=== PATIENT | male | born 1950 | race Caucasian/White ===

== ENCOUNTER → 2016-04-07 | Outpatient (CLI) | payer MEDICARE | LOC: SL 20:30 | PROVIDERS: ATTEND Family Medicine | DX: G47.33 Obstructive sleep apnea (adult) (pediatric) (principal); R06.83 Snoring; I10 Essential (primary) hypertension ==

== ENCOUNTER → 2017-01-23 | Outpatient (CLI) | payer MEDICARE | END | disposition home or self-care (01) | LOC: GMAB 14:19 | PROVIDERS: ATTEND Family Medicine | DX: Z12.5 Encounter for screening for malignant neoplasm of prostate (principal); I12.9 Hypertensive chronic kidney disease with stage 1 through stage 4 chronic kidney disease, or unspecified chronic kidney disease | CPT/HCPCS: 84443; G0103 ==

== ENCOUNTER → 2017-07-18 | Outpatient (CLI) | payer MEDICARE | LOC: LAB.O 11:15 | PROVIDERS: ATTEND Psychiatry & Neurology Neurology | DX: G40.219 Localization-related (focal) (partial) symptomatic epilepsy and epileptic syndromes with complex partial seizures, intractable, without status epilepticus (principal); G60.3 Idiopathic progressive neuropathy; G56.13 Other lesions of median nerve, bilateral upper limbs; M54.16 Radiculopathy, lumbar region; D64.9 Anemia, unspecified; R53.83 Other fatigue; R51 Headache ==

== ENCOUNTER 2017-07-21 22:07 | Emergency (ER) | payer MEDICARE ==
[2017-07-21] MEDS ORDERED: SODIUM CHLORIDE 0.9% 100ML 100 ML IVPB ONE (22:42)
[2017-07-21] MEDS ORDERED: diltiaZEM DRIP 125 MG/25 ML VIAL IVPB ONE (22:43)
--- NOTE | 2017-07-21 22:52 | ED.PDOC ---
History of Present Illness - General Chief Complaint: Neuro Symptoms/Deficits Stated Complaint: Nausea and Vomiting, slow to respond Time Seen by Provider: 07/21/17 22:31 Source: family Exam Limitations: clinical condition - History of Present Illness Initial Comments: Patient presents with AMS for 21 hours. The says that he is slow to respond to question and just shakes his head. He normally is conversational. The says that he has had two CVAs. The first of which he lost a "significant" amount of memory. The second he last sensation and strength in he right extremities. She reports he also has a history of seizures for which he takes Keppra. His seizures consist of his right leg shaking. They do not affect his cognition. She says that he has had this AMS two previous times, one month ago, and two months ago. Those times were in the car when they were traveling. This time, they haven't been traveling anywhere. He had one episode of N/V this morning and he has not eaten much today. No seizure activity today. No other complaints. Timing/Duration: other - 21 hours Severity: moderate Improving Factors: nothing Worsening Factors: cold therapy Associated Symptoms: denies symptoms Allergies/Adverse Reactions: Allergies Clonidine Allergy (Verified 11/08/15 23:38) Metformin Allergy (Verified 11/08/15 16:03) Vomitting Home Medications: Ambulatory Orders Aspirin [Aspirin EC] 81 mg PO BEDTIME 11/08/15 Atorvastatin Calcium [Lipitor] 20 mg PO BEDTIME 11/08/15 Carvedilol 6.25 mg PO BEDTIME 11/08/15 Citalopram Hydrobromide 40 mg PO BEDTIME 11/08/15 Clopidogrel Bisulfate 75 mg PO BEDTIME 11/08/15 Lamotrigine [Lamictal] 100 mg PO BEDTIME 11/08/15 Levetiracetam [Keppra] 1,000 mg PO BID 11/08/15 Lisinopril 5 mg PO BEDTIME 11/08/15 Melatonin 3 mg PO BEDTIME 11/08/15 Ropinirole Hydrochloride [Ropinirole ER] 2 mg PO BEDTIME 11/08/15 amLODIPine BESYLATE [Norvasc] 5 mg PO BEDTIME 11/08/15 Ondansetron HCl [Zofran] 4 mg PO Q8HRS #10 tab 01/30/16 Review of Systems - Review of Systems Constitutional: States: no symptoms reported EENTM: States: no symptoms reported Respiratory: States: no symptoms reported Cardiology: States: no symptoms reported Gastrointestinal/Abdominal: States: no symptoms reported Genitourinary: States: no symptoms reported Musculoskeletal: States: no symptoms reported Skin: States: no symptoms reported Neurological: States: see HPI Endocrine: States: no symptoms reported Hematologic/Lymphatic: States: no symptoms reported Past Medical History (General) - Patient Medical History Hx Seizures: Yes Hx Stroke: Yes Hx Dementia: No Hx Asthma: No Hx of COPD: No Hx Cardiac Disorders: Yes - PVD - stent placement Hx Congestive Heart Failure: No Hx Pacemaker: No Hx Hypertension: Yes Hx Thyroid Disease: No Hx Diabetes: Yes Hx Gastroesophageal Reflux: No Hx Renal Disease: Yes Hx Cancer: No Hx of HIV: No Hx Hepatitis C: No Hx MRSA: No Surgical History: other - Vaccination History Hx Tetanus, Diphtheria Vaccination: No Hx Influenza Vaccination: No Hx Pneumococcal Vaccination: No Immunizations Up to Date: No - Social History Hx Tobacco Use: No Hx Alcohol Use: No Hx Substance Use: No Hx Substance Use Treatment: No Hx Depression: No Hx Physical Abuse: No Hx Emotional Abuse: No - Female History Patient is a Female of Child Bearing Age (10 -59 yrs old): No Patient : No - Triage Comment ED Triage Comment: Pt POA states he has had nausea and vomiting and has been slow to respond since 0300 today. Family Medical History - Family History Father Family History: No Known Living Status: Unknown Physical Exam - Physical Exam General Appearance: Other - slow to respond, knows his name and location Eye Exam: bilateral normal Ears, Nose, Throat: hearing grossly normal, normal ENT inspection Neck: non-tender, full range of motion, supple Respiratory: chest non-tender, lungs clear, normal breath sounds, no respiratory distress Cardiovascular/Chest: normal peripheral pulses, regular rate, rhythm, no edema Gastrointestinal/Abdominal: normal bowel sounds, non tender, soft Extremity: normal range of motion, non-tender, no pedal edema 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 Patient has 4/5 strength in right upper and lower extremities and 5/5 strength in left upper and lower extremities. Unable to test gait due to patient weakness. Skin Exam: normal color Lymphatic: no adenopathy Progress - Progress Progress: 07/22/17 00:44 CT head showed 1.2 cm x 2.1 cm SAH over the Suprasellar cistern. Neurosurgery at [facility] was contacted and accepted patient to the ICU. Cardizem failed to lower the blood pressure to the target of 140 systolic so Nitroprusside was started. Target bp was reached. There was no platelets in house for transfusion due to the patient's aspirin and Plavix use. Patient had one episode of N/V and was given Zofran 4 mg IV x one. Laboratory Tests 07/21/17 07/21/17 07/21/17 22:35 22:35 23:00 WBC 10.8 RBC 4.27 L Hgb 14.3 Hct 41.9 L MCV 98.0 H MCH 33.4 H MCHC 34.2 RDW 12.3 Plt Count 310 MPV 7.4 Absolute Neuts (auto) 8.70 H Absolute Lymphs (auto) 1.40 Absolute Monos (auto) 0.60 Absolute Eos (auto) 0.00 Absolute Basos (auto) 0.10 Neutrophils % 80.4 H Lymphocytes % 13.3 L Monocytes % 5.4 Eosinophils % 0.2 L Basophils % 0.7 PT INR PTT (SP) Sodium 141 Potassium 4.7 Chloride 107 Carbon Dioxide 24 Anion Gap 14.7 BUN 35 H Creatinine 2.83 H BUN/Creatinine Ratio 12.4 POC Glucose 128 H Random Glucose 148 H Serum Osmolality 292.0 Calcium 8.9 Total Bilirubin 0.6 AST 21 ALT 27 Alkaline Phosphatase 98 Creatine Kinase 39 CK-MB (CK-2) 1.4 CK-MB (CK-2) % Not Reportable Troponin I 0.02 B-Natriuretic Peptide Serum Total Protein 7.1 Albumin 3.9 Globulin 3.2 Albumin/Globulin Ratio 1.2 TSH Thyroxine (T4) Salicylates Acetaminophen 07/21/17 07/21/17 07/21/17 23:00 23:00 23:00 WBC RBC Hgb Hct MCV MCH MCHC RDW Plt Count MPV Absolute Neuts (auto) Absolute Lymphs (auto) Absolute Monos (auto) Absolute Eos (auto) Absolute Basos (auto) Neutrophils % Lymphocytes % Monocytes % Eosinophils % Basophils % PT 12.4 INR 1.070 PTT (SP) 32.4 Sodium Potassium Chloride Carbon Dioxide Anion Gap BUN Creatinine BUN/Creatinine Ratio POC Glucose Random Glucose Serum Osmolality Calcium Total Bilirubin AST ALT Alkaline Phosphatase Creatine Kinase CK-MB (CK-2) CK-MB (CK-2) % Troponin I B-Natriuretic Peptide 704.0 H* Serum Total Protein Albumin Globulin Albumin/Globulin Ratio TSH 2.36 Thyroxine (T4) 6.23 Salicylates < 4.0 Acetaminophen < 10.0 L 07/22/17 00:47 07/22/17 01:18 Departure - Departure Clinical Impression: Subarachnoid hematoma Disposition: Transfer to Hospital Condition: Fair Departure Forms: ED Discharge - Pt. Copy, Patient Portal Self Enrollment Diet: other - NPO Activity: other - as per hospitalist Referrals: Dereje Alegre MD [Primary Care Provider] - 1-2 Weeks Home Medications: Ambulatory Orders Aspirin [Aspirin EC] 81 mg PO BEDTIME 11/08/15 Atorvastatin Calcium [Lipitor] 20 mg PO BEDTIME 11/08/15 Carvedilol 6.25 mg PO BEDTIME 11/08/15 Citalopram Hydrobromide 40 mg PO BEDTIME 11/08/15 Clopidogrel Bisulfate 75 mg PO BEDTIME 11/08/15 Lamotrigine [Lamictal] 100 mg PO BEDTIME 11/08/15 Levetiracetam [Keppra] 1,000 mg PO BID 11/08/15 Lisinopril 5 mg PO BEDTIME 11/08/15 Melatonin 3 mg PO BEDTIME 11/08/15 Ropinirole Hydrochloride [Ropinirole ER] 2 mg PO BEDTIME 11/08/15 amLODIPine BESYLATE [Norvasc] 5 mg PO BEDTIME 11/08/15 Ondansetron HCl [Zofran] 4 mg PO Q8HRS #10 tab 01/30/16
[2017-07-21] MEDS ORDERED: diltiaZEM DRIP 125 MG in SODIUM CHLORIDE 0.9% 100ML 100 ML IVPB SCH (23:00)
--- NOTE | 2017-07-21 23:18 | CT ---
EXAM DESCRIPTION: Head CLINICAL HISTORY: AMS COMPARISON: 04/02/2013 TECHNIQUE: Axial CT of the head obtained from the skull apex to the skull base without contrast. FINDINGS: Acute intracranial hemorrhage the rightward aspect of the suprasellar cistern. Location of hemorrhage is concerning for aneurysm rupture. No significant mass effect or midline shift. Encephalomalacia involving the right temporal lobe compatible with remote infarction. The ventricular system and sulcal spaces are mildly enlarged compatible with mild cerebral atrophy. Focal subcentimeter areas of encephalomalacia involving the left basal ganglia likely represent remote lacunar type infarctions. Scattered areas of hypodensity throughout the supratentorial white matter are nonspecific and may be related to chronic small vessel ischemic change. The visualized paranasal sinuses and the mastoids are clear. No skull fracture identified. Visualized orbits and globes are unremarkable. Atherosclerotic calcification of the intracranial internal carotid arteries. DLP:859.97 mGy-cm IMPRESSION: 1. Acute subarachnoid hemorrhage measuring 2.1 x 1.2 cm at the rightward aspect of the suprasellar cistern. This could be seen with aneurysm rupture. Urgent finding reported to Dr. Dunn at 07/21/2017 11:16 PM CDT This exam was performed according to our departmental dose-optimization program, which includes automated exposure control, adjustment of the mA and/or kV according to patient size and/or use of iterative reconstruction technique. Electronically signed by: Jerman English 07/21/2017 11:17 PM CDT
[2017-07-22] MEDS ORDERED: NITROPRUSSIDE SODIUM 25 MG/ML VIAL IVPB ONE (00:44)
[2017-07-22] MEDS ORDERED: SODIUM CHLORIDE 0.9% 250ML 250 ML ONE (00:45)
[2017-07-22] MEDS ORDERED: NITROPRUSSIDE SODIUM 50 MG in SODIUM CHLORIDE 0.9% 250ML 250 ML IVPB SCH (01:00)
[2017-07-22] MEDS ORDERED: ONDANSETRON INJ 4 MG/2 ML VIAL IV ONE (01:07)
[2017-07-22] MEDS ORDERED: ONDANSETRON INJ 4 MG/2 ML VIAL ONE (01:07)
[2017-07-22 04:06] VITALS: BP 148/60; O2SAT 99
[2017-07-22 04:08] VITALS: TEMP 99.2
== END 2017-07-22 02:15 | disposition short-term general hospital (02) ==
LOC: ER 22:07
DX: I60.9 Nontraumatic subarachnoid hemorrhage, unspecified (principal); R11.2 Nausea with vomiting, unspecified; G40.909 Epilepsy, unspecified, not intractable, without status epilepticus; I10 Essential (primary) hypertension; E11.9 Type 2 diabetes mellitus without complications; I69.911 Memory deficit following unspecified cerebrovascular disease; I69.951 Hemiplegia and hemiparesis following unspecified cerebrovascular disease affecting right dominant side; Z79.02 Long term (current) use of antithrombotics/antiplatelets; Z79.899 Other long term (current) drug therapy; Z79.82 Long term (current) use of aspirin
CPT/HCPCS: 36415; 70450; 80053; 80329; 82550; 82553; 82948; 83880; 84436; 84443; 84484; 85025; 85610; 85730; 93005; J2405; J7050

== ENCOUNTER 2017-08-01 23:33 | Emergency (ER) | payer MEDICARE ==
--- NOTE | 2017-08-01 23:57 | ED.PDOC ---
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 RIGHT SIDED RESIDUAL WEAKENSS TONIGHT FOUND CONFUSED FOUND SLUMPED IN THE TOILET HE COULD NOT GET UP WITHOUT ASSISTANCE SINCE HIS DISCHARGE FROM [facility] HE DID WELL FOR 2 DAYS AFTER THAT HE HAS BEEN VOMTING ON AND OFF AND HAS NOT TAKEN HIS MEDICATIONS RECENTLY ADMITTED AT [facility] FOR ATRAUMATIC SAH HE IS A DIABETIC HYPERTENSIVE CHRONIC KIDNEY INJURY SEIZURES TIA USED TO BE CHRONIC HEAVY SMOKER AND ALCOHLIC HE HAS HAD PAD RIGHT CAROTID DISEASE HIS NEUROLOGIST IS DR MCGILL AND DR BROWN IS HIS MELON PACKER - History of Present Illness Timing/Duration: 4-6 hours Severity: mild Improving Factors: nothing Worsening Factors: nothing Associated Symptoms: weakness Allergies/Adverse Reactions: Allergies Clonidine Allergy (Verified 11/08/15 23:38) Metformin Allergy (Verified 11/08/15 16:03) Vomitting Home Medications: Ambulatory Orders Aspirin [Aspirin EC] 81 mg PO BEDTIME 11/08/15 Atorvastatin Calcium [Lipitor] 20 mg PO BEDTIME 11/08/15 Carvedilol 6.25 mg PO BEDTIME 11/08/15 Citalopram Hydrobromide 40 mg PO BEDTIME 11/08/15 Clopidogrel Bisulfate 75 mg PO BEDTIME 11/08/15 Lamotrigine [Lamictal] 100 mg PO BEDTIME 11/08/15 Levetiracetam [Keppra] 1,000 mg PO BID 11/08/15 Lisinopril 5 mg PO BEDTIME 11/08/15 Melatonin 3 mg PO BEDTIME 11/08/15 Ropinirole Hydrochloride [Ropinirole ER] 2 mg PO BEDTIME 11/08/15 amLODIPine BESYLATE [Norvasc] 5 mg PO BEDTIME 11/08/15 Ondansetron HCl [Zofran] 4 mg PO Q8HRS #10 tab 01/30/16 Review of Systems - Review of Systems Constitutional: States: no symptoms reported EENTM: States: no symptoms reported Respiratory: States: no symptoms reported Cardiology: States: no symptoms reported Gastrointestinal/Abdominal: States: no symptoms reported Genitourinary: States: no symptoms reported Musculoskeletal: States: no symptoms reported Skin: States: no symptoms reported Neurological: States: see HPI Endocrine: States: no symptoms reported Past Medical History (General) - Patient Medical History Hx Seizures: Yes Hx Stroke: Yes Hx Dementia: No Hx Asthma: No Hx of COPD: No Hx Cardiac Disorders: Yes - PVD - stent placement Hx Congestive Heart Failure: No Hx Pacemaker: No Hx Hypertension: Yes Hx Thyroid Disease: No Hx Diabetes: Yes Hx Gastroesophageal Reflux: No Hx Renal Disease: Yes Hx Cancer: No Hx of HIV: No Hx Hepatitis C: No Hx MRSA: No - Vaccination History Hx Tetanus, Diphtheria Vaccination: No Hx Influenza Vaccination: No Hx Pneumococcal Vaccination: No - Social History Hx Tobacco Use: No Hx Alcohol Use: No Hx Substance Use: No Hx Substance Use Treatment: No Hx Depression: No Hx Physical Abuse: No Hx Emotional Abuse: No - Female History Patient : No Family Medical History - Family History Father Family History: No Known Living Status: Unknown Physical Exam - Physical Exam General Appearance: Alert, Other - CHRONICALLY ILL APPEARING MALE WHO IS FEBRILE HYPERTENSIVE NO TACHYCARDIA NO TACHYPNEA NO HYPOXIA Eye Exam: bilateral normal Ears, Nose, Throat: hearing grossly normal, normal ENT inspection, normal pharynx Neck: non-tender, full range of motion, supple Respiratory: chest non-tender, lungs clear, normal breath sounds, no respiratory distress Cardiovascular/Chest: normal peripheral pulses, regular rate, rhythm, no edema, no gallop Peripheral Pulses: radial,right: 2+, radial,left: 2+, femoral,right: 2+, femoral ,left: 2+, popliteal,right: 2+, popliteal,left: 2+ Gastrointestinal/Abdominal: normal bowel sounds, non tender, soft, no organomegaly Back Exam: normal inspection, no CVA tenderness, no vertebral tenderness Extremity: normal range of motion, non-tender, normal inspection, no pedal edema , no calf tenderness 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, no motor/sensory deficits, other - HE IS RATHER LETHARGIC HE RESPONDS TO VERBAL COMMANDS NO GROSS FOCAL LESION NOTED Progress - Results/Orders Results/Orders: Laboratory Tests 08/02/17 08/02/17 08/02/17 00:35 00:35 01:35 WBC 18.3 H RBC 3.78 L Hgb 12.6 L Hct 36.9 L MCV 97.8 H MCH 33.3 H MCHC 34.1 RDW 11.9 Plt Count 355 MPV 7.5 Absolute Neuts (auto) 16.70 H Absolute Lymphs (auto) 0.60 L Absolute Monos (auto) 1.00 H Absolute Eos (auto) 0.00 Absolute Basos (auto) 0.10 Neutrophils % 91.0 H Lymphocytes % 3.3 L Monocytes % 5.4 Eosinophils % 0.0 L Basophils % 0.3 Sodium 133 L Potassium 4.2 Chloride 104 Carbon Dioxide 20 L Anion Gap 13.2 BUN 36 H Creatinine 3.01 H BUN/Creatinine Ratio 12.0 Random Glucose 258 H Serum Osmolality 283.6 Lactic Acid 1.2 Calcium 7.6 L Total Bilirubin 0.5 AST 19 ALT 22 Alkaline Phosphatase 85 Serum Total Protein 6.4 Albumin 3.0 L Globulin 3.4 Albumin/Globulin Ratio 0.9 L Urine Color Urine Appearance Urine pH Ur Specific [place] Urine Protein Urine Glucose (UA) Urine Ketones Urine Blood Urine Nitrite Urine Bilirubin Urine Urobilinogen Ur Leukocyte Esterase Urine RBC Urine WBC Ur Epithelial Cells Urine Bacteria 08/02/17 01:35 WBC RBC Hgb Hct MCV MCH MCHC RDW Plt Count MPV Absolute Neuts (auto) Absolute Lymphs (auto) Absolute Monos (auto) Absolute Eos (auto) Absolute Basos (auto) Neutrophils % Lymphocytes % Monocytes % Eosinophils % Basophils % Sodium Potassium Chloride Carbon Dioxide Anion Gap BUN Creatinine BUN/Creatinine Ratio Random Glucose Serum Osmolality Lactic Acid Calcium Total Bilirubin AST ALT Alkaline Phosphatase Serum Total Protein Albumin Globulin Albumin/Globulin Ratio Urine Color Yellow Urine Appearance Clear Urine pH 6.5 Ur Specific [place] 1.025 Urine Protein >=300 H Urine Glucose (UA) 250 H Urine Ketones Negative Urine Blood Small H Urine Nitrite Negative Urine Bilirubin Negative Urine Urobilinogen 1.0 Ur Leukocyte Esterase Negative Urine RBC 1-3 Urine WBC 3-5 H Ur Epithelial Cells 0 Urine Bacteria Rare Departure - Departure Clinical Impression: Aspiration pneumonia, Altered mental status, Acute kidney injury Disposition: Discharge to Home or Self Care Referrals: Dereje Alegre MD [Primary Care Provider] - 1-2 Weeks Home Medications: Ambulatory Orders Aspirin [Aspirin EC] 81 mg PO BEDTIME 11/08/15 Atorvastatin Calcium [Lipitor] 20 mg PO BEDTIME 11/08/15 Carvedilol 6.25 mg PO BEDTIME 11/08/15 Citalopram Hydrobromide 40 mg PO BEDTIME 11/08/15 Clopidogrel Bisulfate 75 mg PO BEDTIME 11/08/15 Lamotrigine [Lamictal] 100 mg PO BEDTIME 11/08/15 Levetiracetam [Keppra] 1,000 mg PO BID 11/08/15 Lisinopril 5 mg PO BEDTIME 11/08/15 Melatonin 3 mg PO BEDTIME 11/08/15 Ropinirole Hydrochloride [Ropinirole ER] 2 mg PO BEDTIME 11/08/15 amLODIPine BESYLATE [Norvasc] 5 mg PO BEDTIME 11/08/15 Ondansetron HCl [Zofran] 4 mg PO Q8HRS #10 tab 01/30/16
--- NOTE | 2017-08-02 00:35 | CT ---
EXAM: NONCONTRAST BRAIN CT EXAMINATION. CLINICAL INDICATION: Stroke. COMPARISON: Compared to brain CT examination July 21, 2016. TECHNIQUE: Using low dose helical CT technique, thin section axial images were performed through the brain without the administration of intravenous or subarachnoid contrast material. FINDINGS: Unchanged sequela of large right MCA territory infarction. Unchanged remote lacunar infarctions in the left lentiform nucleus left caudate head, left internal capsule and left external capsule. Unchanged sequela of bibasilar temporal lobe trauma versus infarction. Resolution of right skull subarachnoid hemorrhage. No diffuse brain swelling or brain herniation. No hydrocephalus. No subdural or epidural hematomas. No large subacute brain infarction. No parenchymal brain hemorrhage or evidence of intracranial mass lesion. The brainstem and cerebellum are normal. Bones of the skull and skull base are normal. The middle ears and mastoid air cells are clear. The partially visualized paranasal sinuses are clear. Globes and orbits are grossly normal. Moderate bilateral atherosclerotic calcification in the cavernous internal carotid arteries. IMPRESSION: 1. Resolution of right skull base subarachnoid hemorrhage since the comparison brain CT of July 21, 2017. 2. Unchanged remote bilateral brain infarctions as described above. 3. No intracranial hemorrhage or evidence of new brain infarction since the July 21, [address] examination. Findings discussed with Dr. Land on 08/02/2017 at 0033 hours. This exam was performed according to our departmental dose-optimization program, which includes automated exposure control, adjustment of the mA and/or kV according to patient size and/or use of iterative reconstruction technique. CT Electronically signed by: Winston Light MD 08/02/2017 12:33 AM CDT
[2017-08-02] MEDS ORDERED: CEFEPIME 1 GM in SODIUM CHLORIDE 0.9% 50ML 50 ML IVPB ONE (01:57)
[2017-08-02] MEDS ORDERED: SODIUM CHLORIDE 0.9% 50ML 50 ML ONE (02:04)
[2017-08-02] MEDS ORDERED: CEFEPIME 2 GM VIAL IVPB ONE (02:04)
--- NOTE | 2017-08-02 02:40 | RAD ---
EXAM DESCRIPTION: Chest,1 View CLINICAL HISTORY: Pneumonia COMPARISON: 11/08/2015 FINDINGS: Single frontal view of the chest. The cardiomediastinal silhouette has normal size and contour. Mild elevation left hemidiaphragm. Minimal hazy left basilar opacity. Postoperative change in the cervical spine and neck. Leads overlie the chest. Upper abdominal soft tissues are unremarkable. IMPRESSION: 1. Minimal hazy left basilar opacities. This may be related to atelectasis and elevation left hemidiaphragm however developing pneumonic process could produce a similar appearance. Continued radiographic follow-up recommended. Electronically signed by: Jerman English 08/02/2017 2:38 AM CDT
[2017-08-02] MEDS ORDERED: hydrALAZINE HCl 20 MG/ML VIAL ONE (03:02)
[2017-08-02] MEDS ORDERED: hydrALAZINE HCl 20 MG/ML VIAL IV ONE (03:08)
[2017-08-02 07:33] VITALS: O2SAT 99
[2017-08-02 09:46] VITALS: BP 198/84; TEMP 98
== END 2017-08-02 09:10 | disposition short-term general hospital (02) ==
LOC: ER 23:33
DX: J69.0 Pneumonitis due to inhalation of food and vomit (principal); R41.82 Altered mental status, unspecified; N17.9 Acute kidney failure, unspecified; I10 Essential (primary) hypertension; E11.9 Type 2 diabetes mellitus without complications; I73.9 Peripheral vascular disease, unspecified; Z79.82 Long term (current) use of aspirin; Z79.84 Long term (current) use of oral hypoglycemic drugs
CPT/HCPCS: 36415; 70450; 71045; 80053; 80177; 81001; 83605; 85025; A4216; J0360; J0692

== ENCOUNTER → 2017-08-01 | Outpatient (CLI) | payer MEDICARE | LOC: GMAB 14:43 | PROVIDERS: ATTEND Family Medicine | DX: R56.9 Unspecified convulsions (principal) ==

== ENCOUNTER → 2017-08-17 | Outpatient (CLI) | payer MEDICARE | LOC: GMAB 16:48 | PROVIDERS: ATTEND Family Medicine | DX: N39.0 Urinary tract infection, site not specified (principal) ==

== ENCOUNTER → 2017-08-30 | Outpatient (CLI) | payer MEDICARE | LOC: GMAB 14:38 | PROVIDERS: ATTEND Family Medicine | DX: N39.0 Urinary tract infection, site not specified (principal); N18.4 Chronic kidney disease, stage 4 (severe) ==

== ENCOUNTER → 2017-09-07 | Outpatient (CLI) | payer MEDICARE | LOC: LAB.O 14:04 | PROVIDERS: ATTEND Psychiatry & Neurology Neurology | DX: G60.3 Idiopathic progressive neuropathy (principal); G40.219 Localization-related (focal) (partial) symptomatic epilepsy and epileptic syndromes with complex partial seizures, intractable, without status epilepticus; M54.16 Radiculopathy, lumbar region; I08.0 Rheumatic disorders of both mitral and aortic valves; Z79.899 Other long term (current) drug therapy; Z79.01 Long term (current) use of anticoagulants ==

== ENCOUNTER 2017-10-01 05:22 | Emergency (ER) | payer MEDICARE ==
[2017-10-01] MEDS ORDERED: SODIUM CHLORIDE 0.9% (FLUSH) 10 ML SYG IV PRN (05:58)
[2017-10-01] MEDS ORDERED: SODIUM CHLORIDE 0.9% 1000ML 1,000 ML IVS PRN (05:58)
[2017-10-01 05:59] VITALS: TEMP 96.3
--- NOTE | 2017-10-01 06:09 | ED.PDOC ---
History of Present Illness - General Chief Complaint: Respiratory Problem Stated Complaint: shortness of breath after vomiting. Time Seen by Provider: 10/01/17 06:06 Source: family - Exam Limitations: no limitations - History of Present Illness Initial Comments: Donn Aburto 66 y/o male brought by with nausea vomiting since early this am and with sob.On arrival had Spo2 61% RA was found to be pale , diaphoretic,and no verbal. Timing/Duration: this morning Severity: severe Episode Description: sob/N/V Possible Cause: no prior episodes, other - aspiration Improving Factors: nothing Worsening Factors: nothing Associated Symptoms: shortness of breath Respiratory Risk Factors: other - N/V Allergies/Adverse Reactions: Allergies Clonidine Allergy (Verified 11/08/15 23:38) Metformin Allergy (Verified 11/08/15 16:03) Vomitting Home Medications: Ambulatory Orders Aspirin [Aspirin EC] 81 mg PO BEDTIME 11/08/15 Atorvastatin Calcium [Lipitor] 20 mg PO BEDTIME 11/08/15 Carvedilol 6.25 mg PO BEDTIME 11/08/15 Citalopram Hydrobromide 40 mg PO BEDTIME 11/08/15 Clopidogrel Bisulfate 75 mg PO BEDTIME 11/08/15 Lamotrigine [Lamictal] 100 mg PO BEDTIME 11/08/15 Levetiracetam [Keppra] 1,000 mg PO BID 11/08/15 Lisinopril 5 mg PO BEDTIME 11/08/15 Melatonin 3 mg PO BEDTIME 11/08/15 Ropinirole Hydrochloride [Ropinirole ER] 2 mg PO BEDTIME 11/08/15 amLODIPine BESYLATE [Norvasc] 5 mg PO BEDTIME 11/08/15 Ondansetron HCl [Zofran] 4 mg PO Q8HRS #10 tab 01/30/16 Review of Systems - Review of Systems Constitutional: States: no symptoms reported EENTM: States: no symptoms reported Respiratory: States: see HPI Gastrointestinal/Abdominal: States: vomiting Genitourinary: States: no symptoms reported Musculoskeletal: States: no symptoms reported Neurological: States: other - old cva Past Medical History (General) - Patient Medical History Hx Seizures: Yes Hx Stroke: Yes Hx Dementia: No Hx Asthma: No Hx of COPD: No Hx Cardiac Disorders: Yes - PVD - stent placement Hx Congestive Heart Failure: No Hx Pacemaker: No Hx Hypertension: Yes Hx Thyroid Disease: No Hx Diabetes: Yes Hx Gastroesophageal Reflux: No Hx Renal Disease: Yes Hx Cancer: No Hx of HIV: No Hx Hepatitis C: No Hx MRSA: No Surgical History: other - hernia repain,aortoiliac stent;c-spine - Vaccination History Hx Tetanus, Diphtheria Vaccination: No Hx Influenza Vaccination: No Hx Pneumococcal Vaccination: No - Social History Hx Tobacco Use: Yes Hx Alcohol Use: Yes - quit Hx Substance Use: No Hx Substance Use Treatment: No Hx Depression: No Hx Physical Abuse: No Hx Emotional Abuse: No - Female History Patient : No Family Medical History - Family History Father Family History: No Known Living Status: Unknown Hx Family Congestive Heart Failure: Yes - dad/[place] Hx Family Diabetes: Yes - mom Physical Exam - Physical Exam General Appearance: Anxious, Obvious distress Eye Exam: bilateral normal ENT Exam: normal ENT inspection, pharynx normal Neck: supple, trachea midline Respiratory: respiratory distress, rales - both lungs Cardiovascular/Chest: regular rate, rhythm, no murmur Gastrointestinal/Abdominal: non tender, soft Neurologic: other - lethargic Skin Exam: pallor Progress - Progress Progress: 10/01/17 06:23 Vital Signs - 8 hr 10/01/17 05:48 Temperature 96.3 F L Pulse Rate [ 128 H left] Respiratory 28 H Rate Blood Pressure 154/77 [right] O2 Sat by Pulse 56 L Oximetry - Results/Orders Results/Orders: 10/01/17 05:58 IV Care:Saline Lock per Protoc QSHIFT Telemetry .ONCE Sodium Chloride 0.9% (Flush) [Saline Flush Syringe] 10 ml IV PRN PRN Sodium Chloride 0.9% 1000ML [Ns 1000 ml] 1,000 ml IVS .QD EKG Assessment ONCE Pulse Oximetry Assessment DAILY 10/01/17 05:59 LACTIC ACID Stat BLOOD CULTURE Stat Chest,1 View [RAD] Stat 10/01/17 06:00 EKG STAT 10/01/17 06:04 B-TYPE NATRIURETIC PEPTIDE/BNP Stat COMPLETE METABOLIC PROFILE Stat D-DIMER,QUANTITATIVE Stat PARTIAL THROMBOPLASTIN TIME Stat PROTHROMBIN TIME Stat CBC (AUTOMATED) W/AUTO DIFF Stat DIFFERENTIAL,MANUAL BY FLAGS Stat 10/01/17 06:13 CARDIAC ENZYME GROUP Stat 10/01/17 09:00 Pulse Ox Daily Laboratory Results - last 24 hr 10/01/17 06:04 WBC 25.4 H* RBC 4.35 L Hgb 14.6 Hct 44.3 MCV 101.7 H MCH 33.5 H MCHC 33.1 RDW 13.4 Plt Count 401 H MPV 8.2 Absolute Neuts (auto) 20.90 H Absolute Lymphs (auto) 3.20 Absolute Monos (auto) 1.00 H Absolute Eos (auto) 0.10 Absolute Basos (auto) 0.20 H Neutrophils % 82.5 H Lymphocytes % 12.7 L Monocytes % 3.9 Eosinophils % 0.2 L Basophils % 0.7 - EKG/XRAY/CT EKG: Sinus, Tachy, nonspecific ST T wave Chg Comments: HR 110 narrow q wave 111 Procedures - Intubation Time of Intubation: 06:10 - had 2 attempts ;nurse/ems intubated patient w/size 7 ETT Intubation Method: orotracheal Tube Size (cm): 7.0 Medications: Pancuronium, Versed Breath Sounds after Intubation: equal Intubation Complications: no complications Post Intubation Xray: Yes Departure - Departure Clinical Impression: Acute respiratory failure Qualifiers: Respiratory failure complication: hypoxia Qualified Code(s): J96.01 - Acute respiratory failure with hypoxia Aspiration pneumonia due to regurgitated food Qualifiers: Laterality: bilateral Lung location: unspecified part of lung Qualified Code(s) : J69.0 - Pneumonitis due to inhalation of food and vomit Time of Disposition: :28 Disposition: Transfer to Hospital Condition: Serious Departure Forms: Patient Portal Self Enrollment Referrals: KIRSTIN OCONNOR MD [Primary Care Provider] - 1-2 Weeks Home Medications: Ambulatory Orders Aspirin [Aspirin EC] 81 mg PO BEDTIME 11/08/15 Atorvastatin Calcium [Lipitor] 20 mg PO BEDTIME 11/08/15 Carvedilol 6.25 mg PO BEDTIME 11/08/15 Citalopram Hydrobromide 40 mg PO BEDTIME 11/08/15 Clopidogrel Bisulfate 75 mg PO BEDTIME 11/08/15 Lamotrigine [Lamictal] 100 mg PO BEDTIME 11/08/15 Levetiracetam [Keppra] 1,000 mg PO BID 11/08/15 Lisinopril 5 mg PO BEDTIME 11/08/15 Melatonin 3 mg PO BEDTIME 11/08/15 Ropinirole Hydrochloride [Ropinirole ER] 2 mg PO BEDTIME 11/08/15 amLODIPine BESYLATE [Norvasc] 5 mg PO BEDTIME 11/08/15 Ondansetron HCl [Zofran] 4 mg PO Q8HRS #10 tab 01/30/16 Transfer to Outside Facility - Transfer Information Accepting Provider:: D/W Dr. Beaulieu-Hospitalist Accepting Facility: [facility] Reason for Transfer: ICU
[2017-10-01] MEDS ORDERED: PIPERACILLIN/TAZOBACTAM 3.375 GM VIAL IVPB ONE (06:14)
[2017-10-01] MEDS ORDERED: PIPERACILLIN/TAZOBACTAM 3.375 GM in SODIUM CHLORIDE 0.9% 100ML 100 ML IVPB ONE (06:15)
[2017-10-01] MEDS ORDERED: SODIUM CHLORIDE 0.9% 100ML 100 ML IVPB ONE (06:15)
--- NOTE | 2017-10-01 06:49 | RAD ---
EXAM DESCRIPTION: Single view of the chest CLINICAL HISTORY: vomiting aspiration. COMPARISON: 08/02/2017 FINDINGS: Single frontal view of the chest. NG tube with tip in the stomach, the side port is not above the level of the gastroesophageal junction. Endotracheal tube with tip at the level of the clavicles. Cardiac mediastinal silhouette is unremarkable. Pulmonary vascular congestion with bilateral interstitial and alveolar opacities. No pneumothorax. Possible small left pleural effusion. No acute osseous abnormalities. Upper abdominal soft tissues are unremarkable. IMPRESSION: 1. Pulmonary vascular congestion with bilateral interstitial and alveolar opacities. These findings suggest pulmonary edema. 2. NG tube with side-port above the level of the gastroesophageal junction. Recommend advancing 5-10 cm. Endotracheal tube in appropriate position. Electronically signed by: Jerman English 10/01/2017 6:38 AM CDT
[2017-10-01] MEDS ORDERED: LABETALOL INJ 5 MG/ML VIAL ONE (07:02)
[2017-10-01] MEDS ORDERED: hydrALAZINE HCl 20 MG/ML VIAL ONE (07:06)
[2017-10-01 07:17] VITALS: BP 157/89; O2SAT 94
[2017-10-02] MEDS ORDERED: MIDAZOLAM INJ 5 MG/5 ML VIAL ONE (07:00)
[2017-10-02] MEDS ORDERED: VECURONIUM BROMIDE 10 MG VIAL IV ONE (07:00)
[2017-10-02] MEDS ORDERED: WATER FOR INJ 10 ML VIAL INJ ONE (07:00)
== END 2017-10-01 07:10 | disposition short-term general hospital (02) ==
LOC: ER 05:22
DX: J96.01 Acute respiratory failure with hypoxia (principal); J69.0 Pneumonitis due to inhalation of food and vomit; I10 Essential (primary) hypertension; E11.9 Type 2 diabetes mellitus without complications; R11.2 Nausea with vomiting, unspecified; N28.9 Disorder of kidney and ureter, unspecified; Z86.73 Personal history of transient ischemic attack (TIA), and cerebral infarction without residual deficits; Z79.84 Long term (current) use of oral hypoglycemic drugs; Z79.82 Long term (current) use of aspirin; Z79.02 Long term (current) use of antithrombotics/antiplatelets
CPT/HCPCS: 31500; 36415; 36600; 71045; 80053; 81001; 82550; 82553; 82803; 82805; 83605; 83880; 84484; 85025; 85379; 85610; 85730; 93005; 94002; 94770; A4216; J0360; J2250; J2543; J7030; J7050

== ENCOUNTER 2017-12-10 13:06 | Emergency (ER) | payer MEDICARE ==
[2017-12-10 13:56] VITALS: BP 167/84; TEMP 97.4; O2SAT 100
[2017-12-10] MEDS ORDERED: LIDOCAINE HCL 2% (MOUTH-THROAT) 15 ML UD ONE (14:33)
--- NOTE | 2017-12-10 15:17 | ED.PDOC ---
History of Present Illness - General Chief Complaint: Problem Stated Complaint: Swan catheter hurting Time Seen by Provider: 12/10/17 15:14 Source: patient, family Exam Limitations: clinical condition - History of Present Illness Initial Comments: the patient is a 67-year-old male presenting to the emergency room secondary to pain at his Swan catheter site. The patient does have some dementia. Pain has been present for the last day. Apparently the catheter got tugged on a couple of times but has been draining okay. The catheterization present for a little more than a month secondary to urinary retention. He has followed up follow-up appointment with his urologist in 2 weeks. No fevers. Timing/Duration: 24 hours Severity: mild Improving Factors: nothing Worsening Factors: nothing Associated Symptoms: denies symptoms Allergies/Adverse Reactions: Allergies Calcitriol Allergy (Verified 12/10/17 13:23) Clonidine Allergy (Verified 11/08/15 23:38) Donepezil Allergy (Verified 12/10/17 13:23) Hydralazine [From BiDil] Allergy (Verified 12/10/17 13:23) Isosorbide Nitrate [From BiDil] Allergy (Verified 12/10/17 13:23) Levofloxacin [From Levaquin] Allergy (Verified 12/10/17 13:29) Metformin Allergy (Verified 11/08/15 16:03) Vomitting Nitroglycerin Allergy (Verified 12/10/17 13:23) Valproic Acid [From Depakote] Allergy (Verified 12/10/17 13:29) Yellow Dye [From BiDil] Allergy (Verified 12/10/17 13:23) Home Medications: Ambulatory Orders Aspirin [Aspirin EC] 81 mg PO BEDTIME 11/08/15 Atorvastatin Calcium [Lipitor] 20 mg PO BEDTIME 11/08/15 Carvedilol 6.25 mg PO BID 11/08/15 Citalopram Hydrobromide 40 mg PO BEDTIME 11/08/15 Clopidogrel Bisulfate 75 mg PO BEDTIME 11/08/15 Lamotrigine [Lamictal] 100 mg PO BID 11/08/15 Levetiracetam [Keppra] 500 mg PO BID 11/08/15 Lisinopril 20 mg PO BEDTIME 11/08/15 Melatonin 3 mg PO BEDTIME 11/08/15 Ropinirole Hydrochloride [Ropinirole ER] 2 mg PO BID 11/08/15 Furosemide 20 mg PO DAILY 12/10/17 Potassium Chloride Microencaps [Klor-Con M20] 20 meq PO DAILY 12/10/17 Review of Systems - Review of Systems Review of Systems: 12/10/17 15:16 review of systems is moderately limited secondary to dementia. Constitutional: States: no symptoms reported EENTM: States: no symptoms reported Respiratory: States: no symptoms reported Cardiology: States: no symptoms reported Gastrointestinal/Abdominal: States: no symptoms reported Genitourinary: States: see HPI Musculoskeletal: States: no symptoms reported Skin: States: no symptoms reported Neurological: States: no symptoms reported All other Systems: No Change from Baseline Past Medical History (General) - Patient Medical History Hx Seizures: Yes Hx Stroke: Yes Hx Dementia: No Hx Asthma: No Hx of COPD: No Hx Cardiac Disorders: Yes - PVD - stent placement Hx Congestive Heart Failure: No Hx Pacemaker: No Hx Hypertension: Yes Hx Thyroid Disease: No Hx Diabetes: Yes Hx Gastroesophageal Reflux: No Hx Renal Disease: Yes Hx Cancer: No Hx of HIV: No Hx Hepatitis C: No Hx MRSA: No - Vaccination History Hx Tetanus, Diphtheria Vaccination: No Hx Influenza Vaccination: No Hx Pneumococcal Vaccination: No - Social History Hx Tobacco Use: Yes Hx Alcohol Use: Yes - quit Hx Substance Use: No Hx Substance Use Treatment: No Hx Depression: No Hx Physical Abuse: No Hx Emotional Abuse: No - Female History Patient : No Family Medical History - Family History Father Family History: No Known Living Status: Unknown Hx Family Congestive Heart Failure: Yes - dad/[place] Hx Family Diabetes: Yes - mom Physical Exam - Physical Exam General Appearance: Alert, Obvious distress - he is reporting that his catheter is hurting him Eye Exam: bilateral normal Ears, Nose, Throat: normal pharynx Neck: non-tender, supple Respiratory: no respiratory distress, no accessory muscle use Cardiovascular/Chest: normal peripheral pulses, no edema Peripheral Pulses: radial,right: 2+, radial,left: 2+ Gastrointestinal/Abdominal: non tender, soft Rectal Exam: other - Swan catheter is causing pain. 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 We did deflate the balloon and advanced the catheter however this did not relieve the pain so the catheter was taken out for more than an hour. The pain did improve but he was unable to void. Due to this another catheter was replaced which is not hurting him nearly as much. He needs to keep his follow-up with urology. ER warnings were given. Departure - Departure Clinical Impression: Urinary catheter change required Disposition: Discharge to Home or Self Care Condition: Fair Departure Forms: ED Discharge - Pt. Copy, Patient Portal Self Enrollment Diet: regular diet Activity: increase activity as tolerated Referrals: KIRSTIN OCONNOR MD [Primary Care Provider] - 1-2 Weeks Home Medications: Ambulatory Orders Aspirin [Aspirin EC] 81 mg PO BEDTIME 11/08/15 Atorvastatin Calcium [Lipitor] 20 mg PO BEDTIME 11/08/15 Carvedilol 6.25 mg PO BID 11/08/15 Citalopram Hydrobromide 40 mg PO BEDTIME 11/08/15 Clopidogrel Bisulfate 75 mg PO BEDTIME 11/08/15 Lamotrigine [Lamictal] 100 mg PO BID 11/08/15 Levetiracetam [Keppra] 500 mg PO BID 11/08/15 Lisinopril 20 mg PO BEDTIME 11/08/15 Melatonin 3 mg PO BEDTIME 11/08/15 Ropinirole Hydrochloride [Ropinirole ER] 2 mg PO BID 11/08/15 Furosemide 20 mg PO DAILY 12/10/17 Potassium Chloride Microencaps [Klor-Con M20] 20 meq PO DAILY 12/10/17 Additional Instructions: the patient is a 67-year-old male presenting to the emergency room secondary to pain from his Swan catheter. We did deflate the balloon and advanced the catheter however this did not relieve the pain so the catheter was taken out for more than an hour. The pain did improve but he was unable to void. Due to this another catheter was replaced which is not hurting him nearly as much. He needs to keep his follow-up with urology. ER warnings were given.
== END 2017-12-10 15:31 | disposition home or self-care (01) ==
LOC: ER 13:06
DX: Z46.6 Encounter for fitting and adjustment of urinary device (principal); T83.84XA Pain due to genitourinary prosthetic devices, implants and grafts, initial encounter; F03.90 Unspecified dementia, unspecified severity, without behavioral disturbance, psychotic disturbance, mood disturbance, and anxiety; E11.22 Type 2 diabetes mellitus with diabetic chronic kidney disease; I12.9 Hypertensive chronic kidney disease with stage 1 through stage 4 chronic kidney disease, or unspecified chronic kidney disease; N18.9 Chronic kidney disease, unspecified; I73.9 Peripheral vascular disease, unspecified; Y84.8 Other medical procedures as the cause of abnormal reaction of the patient, or of later complication, without mention of misadventure at the time of the procedure; Z98.890 Other specified postprocedural states; Z86.73 Personal history of transient ischemic attack (TIA), and cerebral infarction without residual deficits; Z79.82 Long term (current) use of aspirin; Z79.899 Other long term (current) drug therapy

== ENCOUNTER 2018-01-30 16:47 | Inpatient (IN) | payer MEDICARE ==
[2018-01-30] MEDS ORDERED: SODIUM CHLORIDE 0.9% (FLUSH) 10 ML SYG IV PRN ×2 (17:01→20:33)
--- NOTE | 2018-01-30 17:17 | RAD ---
EXAM DESCRIPTION: Chest,1 View CLINICAL HISTORY: 67 years Male AMS COMPARISON: 10/01/2017, 11/02/2017 FINDINGS: Cardiac enlargement with central pulmonary vascular congestion and bilateral pulmonary infiltrates predominantly in the central distribution. Findings suggest developing pulmonary edema although infectious process is not excluded. Small left effusion. Areas of consolidation in both lower lung carvalho. IMPRESSION: Bilateral predominantly central infiltrates with consolidation in the lower lung carvalho and small effusions. Findings may reflect pulmonary edema. Infectious process is not excluded Electronically signed by: Doretha Cardenas MD 01/30/2018 5:16 PM [employer]
--- NOTE | 2018-01-30 17:32 | CT ---
PROCEDURE: Head CLINICAL HISTORY: 67 years Male AMS, FREQUENT FALLS COMPARISON: 11/02/2017. TECHNIQUE: Contiguous axial CT images obtained through the brain without IV contrast. This exam was performed according to our department optimization program which includes automated exposure control, adjustment of the mA and/or kv according to patient size and/or use of iterative reconstruction technique. FINDINGS: The ventricles and sulci are prominent consistent with atrophic changes. Areas of encephalomalacia in the temporal lobes bilaterally and numerous areas of lacunar infarct in the basal ganglia and left thalamus. Microvascular ischemic changes. No midline shift or mass effect. No mass lesions. No acute hemorrhage. Atherosclerotic calcifications. No fluid or significant mucosal thickening in the visualized paranasal sinuses. No depressed calvarial fractures. IMPRESSION: No acute intracranial abnormality is identified. Generalized atrophy with microvascular ischemic changes. Electronically signed by: Doretha Cardenas MD 01/30/2018 5:31 PM FIRST [employer]ATER
--- NOTE | 2018-01-30 17:43 | ED.PDOC ---
History of Present Illness - General Chief Complaint: Neuro Symptoms/Deficits Stated Complaint: frequent falls, CONFUSION Time Seen by Provider: 01/30/18 17:01 Source: family Exam Limitations: clinical condition - History of Present Illness Initial Comments: PT SENT TO THE ED BY PCP AFTER BEING FOUND TO BE ACUTELY CONFUSED TODAY. PTS REPORTS FREQUENT FALLS OVER THE PAST WEEK WITH INCREASING WEAKNESS AND CONFUSION NOTICED OVER THE PAST FEW DAYS. PT IS CURRENTLY BEING TREATED FOR PNEUMONIA WITH AUGMENTIN AND PHENERGAN DM. Timing/Duration: getting worse Severity: moderate Improving Factors: nothing Worsening Factors: nothing Associated Symptoms: cough, weakness Allergies/Adverse Reactions: Allergies Calcitriol Allergy (Verified 12/10/17 13:23) Clonidine Allergy (Verified 11/08/15 23:38) Donepezil Allergy (Verified 12/10/17 13:23) Hydralazine [From BiDil] Allergy (Verified 12/10/17 13:23) Isosorbide Nitrate [From BiDil] Allergy (Verified 12/10/17 13:23) Levofloxacin [From Levaquin] Allergy (Verified 12/10/17 13:29) Metformin Allergy (Verified 11/08/15 16:03) Vomitting Nitroglycerin Allergy (Verified 12/10/17 13:23) Valproic Acid [From Depakote] Allergy (Verified 12/10/17 13:29) Yellow Dye [From BiDil] Allergy (Verified 12/10/17 13:23) Home Medications: Ambulatory Orders Aspirin [Aspirin EC] 81 mg PO BEDTIME 11/08/15 Atorvastatin Calcium [Lipitor] 20 mg PO BEDTIME 11/08/15 Carvedilol 6.25 mg PO BID 11/08/15 Citalopram Hydrobromide 40 mg PO BEDTIME 11/08/15 Clopidogrel Bisulfate 75 mg PO BEDTIME 11/08/15 Lamotrigine [Lamictal] 100 mg PO BID 11/08/15 Levetiracetam [Keppra] 500 mg PO BID 11/08/15 Lisinopril 20 mg PO BEDTIME 11/08/15 Melatonin 3 mg PO BEDTIME 11/08/15 Ropinirole Hydrochloride [Ropinirole ER] 2 mg PO BID 11/08/15 Furosemide 20 mg PO DAILY 12/10/17 Potassium Chloride Microencaps [Klor-Con M20] 20 meq PO DAILY 12/10/17 Review of Systems - Review of Systems Constitutional: States: weakness. Denies: chills, fever EENTM: Denies: nose congestion, throat pain Respiratory: States: cough. Denies: short of breath Cardiology: Denies: chest pain, palpitations, syncope Gastrointestinal/Abdominal: Denies: nausea, vomiting Genitourinary: Denies: dysuria, frequency Musculoskeletal: Denies: joint pain, joint swelling Neurological: States: weakness. Denies: headache Endocrine: States: no symptoms reported Unable to Obtain Due To: dementia Past Medical History (General) - Patient Medical History Hx Seizures: Yes Hx Stroke: Yes Hx Dementia: No Hx Asthma: No Hx of COPD: No Hx Cardiac Disorders: Yes - PVD - stent placement Hx Congestive Heart Failure: Yes Hx Pacemaker: No Hx Hypertension: Yes Hx Thyroid Disease: No Hx Diabetes: Yes Hx Gastroesophageal Reflux: No Hx Renal Disease: Yes Hx Cancer: No Hx of HIV: No Hx Hepatitis C: No Hx MRSA: No Hx Other - free text: DEMENTIA - Vaccination History Hx Tetanus, Diphtheria Vaccination: No Hx Influenza Vaccination: No Hx Pneumococcal Vaccination: No - Social History Hx Tobacco Use: Yes Hx Alcohol Use: Yes - quit Hx Substance Use: No Hx Substance Use Treatment: No Hx Depression: No Hx Physical Abuse: No Hx Emotional Abuse: No - Female History Patient : No Family Medical History - Family History Father Family History: No Known Living Status: Unknown Hx Family Congestive Heart Failure: Yes - dad/[place] Hx Family Diabetes: Yes - mom Physical Exam - Physical Exam General Appearance: Alert, Comfortable, No apparent distress, Well Developed, Well Groomed, Well Hydrated Eye Exam: bilateral normal Ears, Nose, Throat: hearing grossly normal Neck: full range of motion, supple Respiratory: lungs clear, normal breath sounds, no respiratory distress, no accessory muscle use Cardiovascular/Chest: regular rate, rhythm, systolic murmur Gastrointestinal/Abdominal: soft, tenderness - EPIGASTRIC Extremity: non-tender, pedal edema - 1+ ON LEFT Neurologic: no motor/sensory deficits, alert, disoriented x 3 Skin Exam: warm/dry, pallor Progress - Progress Progress: 01/30/18 18:36 PT RESTING COMFORTABLY ON RE-EVAL. LABS AND DIAGNOSTICS DISCUSSED WITH PT AND SPOUSE AT BEDSIDE. RECOMMENDED ADMISSION FOR IV FLUIDS AND IV ANTIBIOTICS FOR PERSISTENT PNEUMONIA. PT AND ARE AGREEABLE. - EKG/XRAY/CT EKG: Sinus - @78BPM, NL INTERVALS, NL AXIS, LVH, nonspecific ST T wave Chg - T WAVE INVERSIONS IN THE INFERIOR AND LATERAL LEADS, Changed from - PREVIOUS FROM OCTOBER 2017 Departure - Departure Clinical Impression: Acute confusional state, Bilateral pneumonia, Failure of outpatient treatment, Acute on chronic renal failure, Dehydration, Generalized weakness, Frequent falls Time of Disposition: 18:41 Disposition: Admit Patient Condition: Fair Departure Forms: ED Discharge - Pt. Copy, Patient Portal Self Enrollment Referrals: KIRSTIN OCONNOR MD [Primary Care Provider] - 1-2 Weeks Home Medications: Ambulatory Orders Aspirin [Aspirin EC] 81 mg PO BEDTIME 11/08/15 Atorvastatin Calcium [Lipitor] 20 mg PO BEDTIME 11/08/15 Carvedilol 6.25 mg PO BID 11/08/15 Citalopram Hydrobromide 40 mg PO BEDTIME 11/08/15 Clopidogrel Bisulfate 75 mg PO BEDTIME 11/08/15 Lamotrigine [Lamictal] 100 mg PO BID 11/08/15 Levetiracetam [Keppra] 500 mg PO BID 11/08/15 Lisinopril 20 mg PO BEDTIME 11/08/15 Melatonin 3 mg PO BEDTIME 11/08/15 Ropinirole Hydrochloride [Ropinirole ER] 2 mg PO BID 11/08/15 Furosemide 20 mg PO DAILY 12/10/17 Potassium Chloride Microencaps [Klor-Con M20] 20 meq PO DAILY 12/10/17 Decision To Admit - Decistion To Admit Decision to Admit Reason: Admit from ER Decision to Admit Date: 01/30/18 Decision to Admit Time: 18:41 - CASE DISCUSSED WITH IVÁN SHIN NP WHO AGREES TO ADMIT
[2018-01-30] MEDS ORDERED: KETOROLAC TROMETHAMINE INJ 30 MG/ML VIAL ONE (19:00)
--- NOTE | 2018-01-30 19:53 | HP ---
SUPERVISING PHYSICIAN: Rishi Perla MD CHIEF COMPLAINT: Acute mental status changes. HISTORY OF PRESENT ILLNESS: This is a 67 year-old male patient who is having increasing confusion over the last week or so. He has also had fallen almost every day this past week. He sees Dr. Piyush Acevedo and sent him to the Emergency Room today. He has also been treated for pneumonia but his was worried about that because he has been unable to take his medication due to the increased confusion. He was on Augmentin and he has continually gotten weaker and weaker and today he would not communicate with anyone and again, he has had multiple falls. In the Emergency Room his chest x- ray showed bilateral predominantly central infiltrates and consolidation in the lower lung carvalho and small effusion. Findings may reflect pulmonary edema and infectious process is not excluded. His labs were drawn and his urinalysis was basically within normal limits with the exception of 100 urine protein and a trace of lysed blood. His WBCs were normal at 7.6 and hemoglobin of 10.2 and hematocrit of 31.5. His sodium was 137, potassium 4.6, chloride 1108, carbon dioxide 23, BUN 61 and creatinine 3.81. His baseline creatinine is about 6.5. Calcium low at 7.4, serum total protein 6, albumin 3.8. In the Emergency Room he was given some Toradol and a 250 mL bag of sodium chloride. His vital signs in the Emergency Room showed a temperature of 96.5 with a heart rate of 81, blood pressure 152/88, respiratory rate 18 and 02 saturations 100% on room air. I was called for hospital admission. PAST MEDICAL HISTORY: 1. CVAs. He had four in 2010, two in 2014, two in 2018. 2. Diabetes mellitus type 2 on diet thy; only. 3. Hypertension. 4. Hyperlipidemia. 5. PVD. 6. Seizure disorder. 7. Cerebrovascular disease. 8. Atherosclerotic cerebrovascular disease. 9. Restless leg syndrome. PAST SURGICAL HISTORY: 1. Bilateral arterial iliac stinting. 2. Right carotid endarterectomy. 3. Hernia repair. 4. Cervical disk surgery. CURRENT MEDICATIONS: Per the EMR and awaiting verification. ALLERGIES: Calcitrol, Clonidine, Donepezil, Hydralazine, Isosorbide, Levofloxacin, Metformin, Nitroglycerin, Depakote and yellow dye. FAMILY HISTORY: Positive for coronary artery disease, diabetes, hyperlipidemia , hypertension. SOCIAL HISTORY: He is , he is disabled. He quit smoking in 2011. There is no history of alcohol or illicit drug use. REVIEW OF SYSTEMS: GENERAL: Denies fever, fatigue or weight loss. HEENT: Negative for vision changes, sore throat or ear pain. RESPIRATORY: Positive for coughing and shortness of breath. Negative for wheezing. CARDIAC: Negative for chest pain, palpitations, tachycardia. GI: Negative for nausea, vomiting, diarrhea and constipation. GENITOURINARY: Negative for dysuria, polyuria, hematuria. MUSCULOSKELETAL: Negative for back pain, arthralgias, myalgias. NEUROLOGICAL: Positive for weakness and seizures. Negative for headaches. PHYSICAL EXAMINATION: VITAL SIGNS: He is afebrile. Heart rate 75, blood pressure 179/92, respiratory rate 18, 02 saturation 100% on room air. GENERAL: This is a 67 year-old thin male patient who is lying in his hospital bed. He is in no acute distress. HEENT: Normocephalic. He does have a laceration and some scrapes on the right side of his head. His oropharynx is clear. NECK: Supple without mass. There is no discernible jugular venous distention. CHEST: He has a few scattered rhonchi throughout and somewhat diminished towards the bases. There is no wheezing noted. There is equal rise and fall of the chest with inspiration and expiration. CARDIOVASCULAR: Thallium treadmill test. ABDOMEN: Soft, nondisplaced, non-tender. Bowel sounds are positive. EXTREMITIES: No cyanosis, clubbing, or edema. NEUROLOGIC: Cranial nerves II through XII appear to be intact. He is awake and alert. He answers simple questions appropriately. He is oriented to person and place. LABS AND FILMS: As per the history of present illness. ASSESSMENT: 1. Bilateral pneumonia most likely community acquired. He has been treated with Augmentin over the last few weeks but the patient has not been taking his medications. 2. Altered mental status most likely secondary to #1, although his cerebrovascular disease cannot be a component of his altered mental status as it seems he has a significant history of mental status changes. 3. Acute on chronic renal failure. His baseline creatinine is 2.5, today it is 3.8. 4. History of frequent falls that have increased exponentially in the last week. 5. History of multiple CVAs. 6. Seizure disorder on Keppra and Lamictal. 7. Hypertension. 8. Hyperlipidemia. PLAN: We will admit the patient to the hospital. I have initiated the pneumonia guidelines including aggressive pulmonary hygiene and breathing treatments. He will be on Rocephin and azithromycin. Blood culture, will attempt to ge a sputum culture but I put him on Rocephin azithromycin. Will also do neuro checks and I have consulted physical therapy. I have also ordered a Lamictal level as well as a Keppra level with the AM lab tomorrow. He will get some fluids overnight and will recheck his renal function. His home medications have been restarted. We will continue to monitor him closely and follow as needed. Dr. Perla is the collaborating physician and available for consultation. #[id number] [facility]
[2018-01-30] MEDS ORDERED: LEVALBUTEROL NEBS 1.25 MG/3 ML VIAL INH PRN (20:43)
[2018-01-30] MEDS ORDERED: CITALOPRAM HBR 20 MG TAB ONE (20:54)
[2018-01-30] MEDS ORDERED: CARVEDILOL 3.125 MG TAB ONE (20:55)
[2018-01-30] MEDS ORDERED: LISINOPRIL 10 MG TAB ONE (20:55)
[2018-01-30] MEDS ORDERED: levETIRAcetam 250 MG TAB ONE (20:55)
[2018-01-30] MEDS ORDERED: POTASSIUM CHLORIDE 20 MEQ TAB ONE (20:56)
[2018-01-30] MEDS ORDERED: FUROSEMIDE 40 MG TAB ONE (20:56)
[2018-01-30] MEDS ORDERED: SODIUM CHLORIDE 0.9% 250ML 250 ML ONE (20:59)
[2018-01-30] MEDS ORDERED: NON-FORMULARY MEDICATION 1 EA MIS (Citalopram Hydrobromide [Citalopram Hydrobromide] 40 MG PO SCH (21:00)
[2018-01-30] MEDS ORDERED: IV SET AND CAP CHANGE INJ INJ SCH (21:00)
[2018-01-30] MEDS ORDERED: ROPINIROLE HYDROCHLORIDE 1 MG PO SCH (21:00)
[2018-01-30] MEDS ORDERED: LISINOPRIL 5 MG TAB PO SCH (21:00)
[2018-01-30] MEDS ORDERED: NON-FORMULARY MEDICATION 1 EA MIS (Carvedilol [Carvedilol] 6.25 MG) PO SCH (21:00)
[2018-01-30] MEDS ORDERED: POTASSIUM CHLORIDE 20 MEQ TAB PO SCH (21:00)
[2018-01-30] MEDS ORDERED: SODIUM CHL 0.9% 50ML MIN-BAG+ 50 ML IVPB ONE (21:00)
[2018-01-30] MEDS ORDERED: AZITHROMYCIN IV 500 MG VIAL IVPB ONE (21:00)
[2018-01-30] MEDS ORDERED: cefTRIAXone SODIUM 1 GM VIAL ONE (21:01)
[2018-01-30] MEDS: ASPIRIN (ENTERIC COATED) 81 MG TAB PO SCH (21:03)
[2018-01-30] MEDS ORDERED: CARVEDILOL 12.5 MG TAB ONE (21:04)
[2018-01-30] MEDS: NON-FORMULARY MEDICATION 1 EA MIS (Furosemide [Furosemide] 20 MG) PO SCH (21:06)
[2018-01-30] MEDS: CLOPIDOGREL 75 MG TAB PO SCH (21:07)
[2018-01-30] MEDS: lamoTRIgine 100 MG TAB PO SCH (21:07)
[2018-01-30] MEDS: ATORVASTATIN 20 MG TAB PO SCH (21:08)
[2018-01-30] MEDS: NON-FORMULARY MEDICATION 1 EA MIS (Levetiracetam [Keppra] 500 MG) PO SCH (21:08)
[2018-01-30] MEDS: cefTRIAXone SODIUM 1 GM in SODIUM CHL 0.9% 50ML MIN-BAG+ 50 ML IVPB SCH (21:08)
[2018-01-30] MEDS: POTASSIUM CHLORIDE ELIXIR 20 MEQ/15 ML UD PO SCH (21:26)
[2018-01-30] MEDS: LEVALBUTEROL NEBS 1.25 MG/3 ML VIAL INH SCH (21:37)
[2018-01-30] MEDS: SODIUM CHLORIDE 0.45% 1000ML 1,000 ML IVS PRN (21:59)
[2018-01-30] MEDS: AZITHROMYCIN IV 500 MG in SODIUM CHLORIDE 0.9% 250ML 250 ML IVPB SCH (22:09)
[2018-01-31] MEDS ORDERED: HALOPERIDOL LACTATE INJ 5 MG/ML VIAL IM ONE (02:16)
[2018-01-31] MEDS ORDERED: diphenhydrAMINE HCL 50 MG/ML VIAL IV ONE (02:17)
[2018-01-31] MEDS: guaiFENesin ER TAB 600 MG TAB PO SCH ×3 (02:31→20:36)
[2018-01-31] MEDS: PANTOPRAZOLE SODIUM IV 40 MG VIAL IV SCH (06:32)
--- NOTE | 2018-01-31 07:03 | RAD ---
EXAM DESCRIPTION: Chest,1 View CLINICAL HISTORY:67 years Male, Pneumonia Comparison: January 30, 2018 FINDINGS: Unchanged enlarged cardiac silhouette with mild vascular congestion and bilateral pulmonary infiltrates favoring pulmonary edema. Infectious process not excluded. Small left pleural effusion. No pneumothorax. Electronically signed by: Jose Herrera MD 01/31/2018 7:02 AM EXPERIENCE SPECIALIST
[2018-01-31] MEDS: SODIUM CHLORIDE 0.45% 1000ML 1,000 ML IVS PRN ×2 (07:50→15:39)
[2018-01-31] MEDS: LEVALBUTEROL NEBS 1.25 MG/3 ML VIAL INH SCH ×4 (08:18→19:30)
[2018-01-31] MEDS ORDERED: levETIRAcetam 250 MG TAB ONE (08:47)
[2018-01-31] MEDS ORDERED: FUROSEMIDE 40 MG TAB ONE (08:47)
[2018-01-31] MEDS: NON-FORMULARY MEDICATION 1 EA MIS (Furosemide [Furosemide] 20 MG) PO SCH (08:48)
[2018-01-31] MEDS: lamoTRIgine 100 MG TAB PO SCH ×2 (08:49→20:34)
[2018-01-31] MEDS: CARVEDILOL 3.125 MG TAB PO SCH ×2 (08:49→20:33)
[2018-01-31] MEDS: POTASSIUM CHLORIDE ELIXIR 20 MEQ/15 ML UD PO SCH (08:50)
[2018-01-31] MEDS: NON-FORMULARY MEDICATION 1 EA MIS (Levetiracetam [Keppra] 500 MG) PO SCH (08:51)
[2018-01-31] MEDS: FUROSEMIDE 40 MG TAB PO SCH ×2 (09:29→20:34)
[2018-01-31] MEDS: levETIRAcetam 250 MG TAB PO SCH ×2 (09:29→20:33)
[2018-01-31] MEDS ORDERED: metroNIDAZOLE IV PREMIX 500MG 100 ML IVPB ONE ×2 (09:33→16:53)
[2018-01-31] MEDS: metroNIDAZOLE IV PREMIX 500MG 500 MG in PREMIX BAG 1 BAG IVPB SCH ×2 (09:35→16:54)
[2018-01-31] MEDS ORDERED: AZITHROMYCIN IV 500 MG VIAL IVPB ONE ×2 (11:52→21:54)
[2018-01-31] MEDS ORDERED: SODIUM CHLORIDE 0.9% 250ML 250 ML ONE ×2 (11:52→21:53)
[2018-01-31] MEDS ORDERED: HALOPERIDOL TAB 1 MG TAB PO ONE (16:23)
[2018-01-31] MEDS ORDERED: POTASSIUM CHLORIDE ELIXIR 20 MEQ/15 ML UD PO SCH (17:00)
[2018-01-31] MEDS ORDERED: SOD POLYSTYRENE SULFONATE 15 GM/60 ML BTTL PO ONE (18:21)
[2018-01-31] MEDS ORDERED: SODIUM CHL 0.9% 50ML MIN-BAG+ 50 ML IVPB ONE (19:45)
[2018-01-31] MEDS ORDERED: cefTRIAXone SODIUM 1 GM VIAL ONE (19:46)
[2018-01-31] MEDS ORDERED: BENZOCAINE-MENTH LOZ (CEPACOL) 1 EA LOZ MT PRN (19:50)
[2018-01-31] MEDS: ASPIRIN (ENTERIC COATED) 81 MG TAB PO SCH (20:31)
[2018-01-31] MEDS: CITALOPRAM HBR 20 MG TAB PO SCH (20:33)
[2018-01-31] MEDS: ATORVASTATIN 20 MG TAB PO SCH (20:35)
[2018-01-31] MEDS: MELATONIN 3 MG TAB PO SCH (20:36)
[2018-01-31] MEDS: CLOPIDOGREL 75 MG TAB PO SCH (20:36)
[2018-01-31] MEDS: cefTRIAXone SODIUM 1 GM in SODIUM CHL 0.9% 50ML MIN-BAG+ 50 ML IVPB SCH (20:37)
[2018-01-31] MEDS: AZITHROMYCIN IV 500 MG in SODIUM CHLORIDE 0.9% 250ML 250 ML IVPB SCH (21:59)
[2018-01-31] MEDS ORDERED: HALOPERIDOL TAB 5MG ONE (22:31)
[2018-02-01] MEDS ORDERED: metroNIDAZOLE IV PREMIX 500MG 100 ML IVPB ONE ×4 (00:46→20:04)
[2018-02-01] MEDS: metroNIDAZOLE IV PREMIX 500MG 500 MG in PREMIX BAG 1 BAG IVPB SCH ×3 (00:48→16:40)
[2018-02-01] MEDS: SODIUM CHLORIDE 0.45% 1000ML 1,000 ML IVS PRN ×2 (03:40→16:04)
[2018-02-01] MEDS: PANTOPRAZOLE SODIUM IV 40 MG VIAL IV SCH (06:04)
--- NOTE | 2018-02-01 06:52 | RAD ---
EXAM DESCRIPTION: Chest,1 View CLINICAL HISTORY:67 years Male, pneumonia Comparison: January 31, 2018 FINDINGS: Unchanged enlarged cardiac silhouette with bilateral perihilar infiltrates/edema/pneumonia and possible small left pleural effusion. Electronically signed by: Jose Herrera MD 02/01/2018 6:51 AM [facility]
[2018-02-01] MEDS ORDERED: SOD POLYSTYRENE SULFONATE 15 GM/60 ML BTTL PO ONE (07:31)
[2018-02-01] MEDS ORDERED: SOD POLYSTYRENE SULFONATE 15 GM/60 ML BTTL ONE (07:56)
[2018-02-01] MEDS ORDERED: ENOXAPARIN SODIUM 30 MG/0.3 ML SYG SUBCU ONE ×2 (07:56→15:34)
[2018-02-01] MEDS: FUROSEMIDE 40 MG TAB PO SCH ×2 (07:58→20:25)
[2018-02-01] MEDS: CARVEDILOL 3.125 MG TAB PO SCH ×2 (07:59→20:24)
[2018-02-01] MEDS: lamoTRIgine 100 MG TAB PO SCH ×2 (07:59→20:27)
[2018-02-01] MEDS: levETIRAcetam 250 MG TAB PO SCH ×2 (08:00→20:26)
[2018-02-01] MEDS: guaiFENesin ER TAB 600 MG TAB PO SCH ×2 (08:00→20:26)
[2018-02-01] MEDS: LEVALBUTEROL NEBS 1.25 MG/3 ML VIAL INH SCH ×4 (08:20→20:05)
--- NOTE | 2018-02-01 08:58 | PN ---
SUPERVISING PHYSICIAN: Rishi Perla MD DATE: 01-31-18 SUBJECTIVE: The patient became restless and required some Haldol but he is doing fine with sitter this morning. He does not seem as confused this morning as he was last night. He has been afebrile. He does note that he is not feeling very well. He has had no nausea or vomiting. OBJECTIVE: VITAL SIGNS: Temperature 98.6, pulse 83, blood pressure 130/81, respirations 17 to 18, saturation 96% on room air. I&Os show to be well-balanced, he is incontinent and has not been measured of his output. Weight 59.9 kg. GENERAL: The patient is very unkept but he does look frail and ill and somewhat dehydrated looking but he is alert but slightly confused. CHEST: Lung sounds continue with some rhonchi throughout but certainly diminished towards both bases. There is no notable wheezing this morning. HEART: Regular rate and rhythm. ABDOMEN: Soft, non-tender, positive bowel sounds. EXTREMITIES: Without cyanosis, clubbing, or edema. NEUROLOGICAL: Facial features remain symmetrical. Extraocular movements are within normal limits. There is no notable nystagmus. Cranial nerves II through XII are grossly intact as assessed. He will respond to simple questions and remains oriented to person and place but not year. LABORATORY: White count this morning 8,900, hemoglobin 9.2 with hematocrit 20.3 with RBC indices showing a macrocytic hypochromic presentation. Platelet count 271,000, differential shows to be without a left shift. Coagulation studies show PT of 11.7, PTT of 27.6. Chemistries show a rising potassium at 5.1 with BUN of 56, creatinine 3.92, glucose 125. Liver functions show to be within normal limits. Carbon dioxide low at 20. Lamotrigine and Levetiracetam levels are pending. MICROBIOLOGY: Sputum cultures pending. Blood cultures remain negative and pending. RADIOLOGY: Repeat chest x-ray this morning per radiology interpretation shows unchanged large cardiac silhouette with mild vascular congestion and bilateral pulmonary infiltrates favoring pulmonary edema, however, infectious process cannot be excluded. There is also note of a left pleural effusion but no pneumothorax. ASSESSMENT: 1. Bilateral pneumonia probably community acquired, however, cannot completely aspiration event with some aspiration pneumonia with the patient having been on Augmentin for the last few weeks and having failed to respond to treatment. 2. Altered mental status felt to be secondary to #1 with patient having a longstanding history of multiple CVAs in the past. 3. Acute on chronic renal failure with slight worsening, likely due to current antibiotic therapy in conjunction with worsening renal function. 4. History of recent falls increasing over the last week. . 5. Seizure disorder on Keppra and Lamictal with levels pending. 6. Hypertension, stable. 7. Hyperlipidemia. PLAN: Will continue treatment of pneumonia with azithromycin and Rocephin as well as the addition of Flagyl with concerns for aspiration pneumonia. Blood cultures and sputum continue to be pending. Will wait for those results to further target antibiotic therapy. He has a consultation with physical therapy and we will await those findings. His labs for Lamictal and Keppra are pending and we will adjust those as needed once they are available. Will need to closely monitor his potassium levels, will do a BNP later this afternoon. It appears that his creatinine level baseline is around 2.5 but is showing an elevation currently which could be due to some prerenal injury from dehydration , again versus worsening renal function of uncertain etiology, probably some additional. exacerbation from current antibiotic regimen. Until the patient can transition to outpatient management, we will continue to monitor and treat as needed. #[id number] [facility]
[2018-02-01] MEDS ORDERED: ENOXAPARIN SODIUM 30 MG/0.3 ML SYG SUBCU SCH (09:00)
--- NOTE | 2018-02-01 09:46 | CT ---
EXAM DESCRIPTION: Head: Computed Tomography. CLINICAL HISTORY: increased weakness COMPARISON: CT scan of the head without IV contrast 01/30/2018. TECHNIQUE: Non-helical axial scans through the skull and brain, at 2.5 x 20 mm intervals, non-contrast. Coronal and sagittal 2.0 mm reconstructions. Total Exam DLP: 752.48 mGy-cm. This exam was performed according to our departmental dose-optimization program which includes automated exposure control, adjustment of the mA and/or kV according to patient size and/or use of iterative reconstruction technique; to reduce radiation dose to as low as reasonably achievable (ALARA). Patient's head was tilted to the left slightly during the scan. FINDINGS: No hemorrhage, no mass-effect, and no midline shift. Again noted are confluent areas of low-density in the periventricular white matter supraventricular white matter and bilateral subcortical white matter. Diffuse area of low-density in the subcortical white matter of the right temporal lobe extending into the right frontal and parietal lobes. This is also stable since the prior study. Multiple left internal capsule and basal ganglia low-density lesions are stable. Similar smaller lesions in the right basal ganglia. Stable encephalomalacia also in the inferior anterior left temporal lobe. Vascular calcifications anterior circulation.; physiologic calcifications in the pineal gland and choroid plexus. No effacement or displacement of the ventricles, CSF spaces, or subdural spaces. Stable minimal bilateral cerebellar atrophy. No extra axial fluid collection or extra-axial hemorrhage. No gross abnormalities of the bony calvarium. Included paranasal sinuses and mastoid air cells are well - aerated. IMPRESSION: 1. No hemorrhage, no mass effect, no midline shift. Stable multicentric areas of low-density in the periventricular white matter, subcortical white matter. Stable encephalomalacia and probable old infarctions bilateral temporal lobes larger on the right than the left, and left basal ganglia more than the right, and left internal capsule. 2. CT scans are insensitive for detecting small CVAs in the first 24 hours after onset. Evaluation of the brain stem is also limited. If symptoms persist, consider NON-EMERGENT MRI scan of the brain with diffusion imaging. Electronically signed by: Antony Orosco MD 02/01/2018 9:44 AM SHIPPING ASSOCIATE
[2018-02-01] MEDS ORDERED: FUROSEMIDE INJ 40 MG/4 ML VIAL IV ONE (11:42)
[2018-02-01] MEDS ORDERED: BISACODYL SUPPOSITORY 10 MG PR ONE (11:45)
--- NOTE | 2018-02-01 13:32 | MRI ---
EXAM DESCRIPTION: Brain w/oContrast CLINICAL HISTORY: Possible CVA COMPARISON: CT head earlier same day. TECHNIQUE: Non contrast MRI of the brain is performed according to our usual protocol including multiplanar multi sequence technique. FINDINGS: 4 mm focus of restricted diffusion in the posterior limb of the right internal capsule, consistent with an acute ischemic lacunar infarct. There is also a 6 mm acute ischemic lacunar infarct in the posterior left parietal lobe. No hemorrhage, mass effect, or midline shift. There is normal configuration of the ventricles and sulci. There is moderate generalized volume loss. Moderate to severe T2/FLAIR hyperintensities in the supratentorial white matter. Chronic lacunar infarcts in the basal ganglia bilaterally. No abnormal extra-axial fluid collections are present. Normal flow voids are present. The calvarium is intact. Visualized paranasal sinuses and mastoid air cells are clear. IMPRESSION: 1. Acute lacunar infarcts in the right posterior limb of the internal capsule and in the left parietal lobe. Bilateral infarcts suggest an embolic etiology. 2. Senescent changes which are advanced for the patient's age. Electronically signed by: Eleuterio Currie MD 02/01/2018 1:[address] [facility]
--- NOTE | 2018-02-01 17:30 | US ---
EXAM DESCRIPTION: Venous,Lower Extremity RT (accession [id number]), Venous,Lower Extremity LT (accession [id number]) CLINICAL HISTORY: 67 years, Male, acute embolic cva COMPARISON: None. FINDINGS: Duplex imaging of the deep venous system of bilateral lower extremity was performed with visualization from the common femoral veins to the popliteal veins and posterior tibial vein. There is normal compressibility, augmentation and flow with no visualized thrombus. No focal fluid collection is identified. IMPRESSION: No DVT seen in the bilateral lower extremity veins. Electronically signed by: Jose Herrera MD 02/01/2018 5:28 PM PREDATORY ANIMAL EXTERMINATOR
--- NOTE | 2018-02-01 17:30 | US ---
EXAM DESCRIPTION: Carotid Duplex CLINICAL HISTORY: 67 years, Male, CVA bilateral infarct on MRI TECHNIQUE: Grayscale and color Doppler ultrasound examination of the carotid and vertebral artery systems bilaterally. Maximum peak systolic velocity (PSV) / end diastolic velocity (EDV) measurements were obtained. COMPARISON: None. FINDINGS: RIGHT: There is calcified plaque in the right external carotid and internal carotid artery and at the carotid bulb. Some intimal thickening is seen in the common carotid. Common carotid velocity is 58 cm/second. Peak ICA velocity is 55 cm/second. Normal IC/CC ratio. Vertebral artery is patient and antegrade. LEFT: Small amount of atherosclerotic plaque. Common carotid velocity is 41 cm/second. Peak ICA velocity is 43 cm/second. Normal IC/CC ratio. Vertebral artery is patient and antegrade. IMPRESSION: No hemodynamically significant stenosis. Antegrade flow in the vertebral arteries. Electronically signed by: Doretha Cardenas MD 02/01/2018 5:29 PM PIPE JEEPER
--- NOTE | 2018-02-01 17:30 | US ---
EXAM DESCRIPTION: Venous,Lower Extremity RT (accession [id number]), Venous,Lower Extremity LT (accession [id number]) CLINICAL HISTORY: 67 years, Male, acute embolic cva COMPARISON: None. FINDINGS: Duplex imaging of the deep venous system of bilateral lower extremity was performed with visualization from the common femoral veins to the popliteal veins and posterior tibial vein. There is normal compressibility, augmentation and flow with no visualized thrombus. No focal fluid collection is identified. IMPRESSION: No DVT seen in the bilateral lower extremity veins. Electronically signed by: Jose Herrera MD 02/01/2018 5:28 PM NATURAL GAS ENGINEER
[2018-02-01] MEDS ORDERED: SODIUM CHL 0.9% 50ML MIN-BAG+ 50 ML IVPB ONE (20:03)
[2018-02-01] MEDS ORDERED: SODIUM CHLORIDE 0.9% 250ML 250 ML ONE (20:03)
[2018-02-01] MEDS ORDERED: cefTRIAXone SODIUM 1 GM VIAL ONE (20:04)
[2018-02-01] MEDS ORDERED: AZITHROMYCIN IV 500 MG VIAL IVPB ONE (20:05)
[2018-02-01] MEDS: CITALOPRAM HBR 20 MG TAB PO SCH (20:18)
[2018-02-01] MEDS: ASPIRIN (ENTERIC COATED) 81 MG TAB PO SCH (20:18)
[2018-02-01] MEDS: MELATONIN 3 MG TAB PO SCH (20:25)
[2018-02-01] MEDS: ATORVASTATIN 20 MG TAB PO SCH (20:26)
[2018-02-01] MEDS: cefTRIAXone SODIUM 1 GM in SODIUM CHL 0.9% 50ML MIN-BAG+ 50 ML IVPB SCH (20:27)
[2018-02-01] MEDS: CLOPIDOGREL 75 MG TAB PO SCH (20:31)
[2018-02-01] MEDS: DEX 5% W/NACL 0.45% 1000ML 1,000 ML IVS PRN (21:17)
[2018-02-01] MEDS: AZITHROMYCIN IV 500 MG in SODIUM CHLORIDE 0.9% 250ML 250 ML IVPB SCH (21:46)
[2018-02-02] MEDS: metroNIDAZOLE IV PREMIX 500MG 500 MG in PREMIX BAG 1 BAG IVPB SCH ×2 (00:27→08:43)
[2018-02-02 04:39] VITALS: TEMP 97.9
[2018-02-02] MEDS: PANTOPRAZOLE SODIUM IV 40 MG VIAL IV SCH (05:50)
[2018-02-02] MEDS ORDERED: metroNIDAZOLE IV PREMIX 500MG 100 ML IVPB ONE (07:06)
[2018-02-02] MEDS: guaiFENesin ER TAB 600 MG TAB PO SCH (08:02)
[2018-02-02] MEDS: lamoTRIgine 100 MG TAB PO SCH (08:02)
[2018-02-02] MEDS: levETIRAcetam 250 MG TAB PO SCH (08:02)
[2018-02-02] MEDS: FUROSEMIDE 40 MG TAB PO SCH (08:02)
[2018-02-02] MEDS: CARVEDILOL 3.125 MG TAB PO SCH (08:03)
[2018-02-02] MEDS ORDERED: ENOXAPARIN SODIUM 60 MG/0.6 ML SYG SUBCU ONE (08:22)
[2018-02-02] MEDS: LEVALBUTEROL NEBS 1.25 MG/3 ML VIAL INH SCH ×2 (08:33→12:59)
--- NOTE | 2018-02-02 08:37 | PN ---
SUPERVISING PHYSICIAN: Rishi Perla MD DATE: 02/01/18 SUBJECTIVE: I was called this morning around 7:30 by the nurses who reported the patient was showing a change in his strength, being more weak on the right than the left. The patient was in no acute distress. He was sent for a CT of the head which was without any additional acute findings. He continues to be very lethargic and moans at times and will answer questions if stimulated. OBJECTIVE: VITAL SIGNS: Temperature 98.3. Pulse 99. Blood pressure 165/104. Respirations 16. Saturation 97% on room air. I&Os not well measured as he is incontinent. He has had one large bowel movement after Kayexalate. Weight 51.5 kg. GENERAL: The patient is lethargic, but will arouse to stimuli. He appears to be comfortable and in no acute distress. CHEST: Lung sounds are diminished towards both bases with just some very faint rhonchi heard posteriorly bilaterally to the bases. No wheezing or rales. HEART: Regular rate and rhythm. ABDOMEN: Soft, nontender, positive bowel sounds. EXTREMITIES: Without cyanosis, clubbing. NEUROLOGICAL: He is difficult to fully assess as he is not cooperative with a full neurologic exam, but he does remain weaker on the right than the left. Facial features look symmetrical. LABORATORY: Chemistries show sodium 134, potassium still elevated at 5.7, carbon dioxide 17, BUN 53, creatinine 3.86. Calcium 7.5, corrected with albumin of 2.8 to 8.4. Toxicology with lamotrigine and Lamictal still pending. BNP 3,730 MICROBIOLOGY: Sputum cultures pending. Group A Strep cultures pending. Blood cultures pending and remain negative. RADIOLOGY: CT of the head showed no hemorrhage, mass effects or left shift. Stable multicentric areas of low density in the periventricular white matter, subcortical white matter. Stable encephalomalacia with probable old infarctions of bilateral temporal lobes, larger on the right than left, and left basilar ganglia more than the right and left, and left internal capsule. MRI of the brain is pending. Carotid arteries pending. Lower extremity studies pending. Chest x-ray shows unchanged enlarged cardiac silhouette with bilateral perihilar infiltrates significant for worsening pneumonia, possible small left pleural effusion. ASSESSMENT: 1. Concern for acute infarct, likely embolic, with the patient having multiple strokes in the past and risk factors for emboli with also Doppler studies of lower extremities and carotids pending with the patient already on Plavix and Lovenox with right sided weakness. 2. Bilateral pneumonia, likely community acquired, although cannot completely rule out aspiration versus healthcare acquired as the patient has been in the hospital multiple times in the last 60 days. He has been on Augmentin in the last several weeks prior to admission, having failed to respond to outpatient treatment measures and showing slow improvement with more aggressive parenteral antibiotic. 3. Altered mental status, likely due to acute infarct with longstanding history of multiple cerebrovascular accidents in the past, exacerbated by underlying pneumonia and chronic illness. 4. Acute on chronic renal failure with slight worsening, likely due to current antibiotic therapy and some slight worsening of renal function, needing close monitoring with the patient's potassium level being elevated and slow response to Kayexalate. 5. Electrolyte imbalance with hyperkalemia secondary to renal failure. 6. Acute on chronic heart failure with an elevated BNP with no current echocardiogram available for review, awaiting most recent echocardiogram for further assessment with radiographic studies consistent with underlying pulmonary congestion requiring more aggressive management with Swan placement for I&O measurements as well as initiation of diuretic therapy. 7. History of recent falls, increased over the last week, likely due to recurrence of stroke versus further insult to areas from previous strokes, awaiting MRI for further evaluation. 8. Seizure disorder on Keppra and Lamictal with levels pending with no seizure activity noted through hospitalization. 9. Hypertension, elevated this morning, likely due to compensatory response to acute stroke event with the patient having underlying renal failure with lisinopril being held and permissive hypertension to prevent further insult if acute stroke has indeed occurred. 10. Hyperlipidemia on statin. PLAN: We will continue with aggressive management of pneumonia with azithromycin and Rocephin and with the addition of Flagyl for continued concerns for aspiration pneumonia. We will monitor his blood cultures and change antibiotics as needed according to those results. He still has a consultation waiting with physical therapy, however, with the new acute findings this morning, that has been put on hold. He was given another dose of Kayexalate last night and he has not yet had a bowel movement. With concerns for constipation and possible obstruction, we will do a soapsuds enema and further laxatives as needed to assist in bowel movements. We will further await studies of his carotids, lower extremities and MRI. Given that he is showing some exacerbation of congestive heart failure, I will give him 40 of Lasix today along with his p.o. and monitor closely his I&Os after Swan placement and we will slow his IV fluids although he is not having any significant oral intake. Therefore, we will probably need to change his IV fluids to D5 half normal saline and we will run at 110 and closely monitor his I &Os. We will follow his blood pressure and not treat aggressively and allow some permissive hypertension with the concern again for underlying acute stroke event. Ultimately, discharge planning will anticipate hopefully being able to discharge within the next 48 hours. At this point, I am not sure the patient will be able to go home, but we will need to start discussion with the family as far as anticipation of being able to discharge either to a care facility or home at the time of discharge. Until he transitions to outpatient management, we will continue to monitor and treat as needed. #[id number] [facility]
[2018-02-02] MEDS ORDERED: FUROSEMIDE INJ 40 MG/4 ML VIAL ONE (08:39)
[2018-02-02] MEDS ORDERED: FUROSEMIDE INJ 40 MG/4 ML VIAL IV ONE (08:49)
[2018-02-02] MEDS ORDERED: ENOXAPARIN SODIUM 60 MG/0.6 ML SYG SUBCU SCH (09:00)
[2018-02-02] MEDS: DEX 5% W/NACL 0.45% 1000ML 1,000 ML IVS PRN (10:18)
[2018-02-02 13:39] VITALS: BP 135/80
[2018-02-02 15:16] VITALS: O2SAT 96
--- NOTE | 2018-02-10 11:10 | DS ---
ADMISSION DIAGNOSIS: 1. Bilateral pneumonia most likely community acquired. He has been treated with Augmentin over the last few weeks but the patient has not been taking his medications. 2. Altered mental status most likely secondary to #1, although his cerebrovascular disease cannot be a component of his altered mental status as it seems he has a significant history of mental status changes. 3. Acute on chronic renal failure. His baseline creatinine is 2.5, today it is 3.8. 4. History of frequent falls that have increased exponentially in the last week. 5. History of multiple CVAs. 6. Seizure disorder on Keppra and Lamictal. 7. Hypertension. 8. Hyperlipidemia. DISCHARGE DIAGNOSIS: 1. 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 The patient was on therapeutic Lovenox during admission and discharged on on Eliquis with both lower extremities, carotid ultrasounds all without any acute findings of thrombus with need for further evaluation with echocardiogram after discharge. Patient showing right-sided weakness. 2. Bilateral pneumonia, community acquired versus aspiration pneumonia with patient being in hospital multiple times versus healthcare acquired pneumonia due to hospitalizations with the patient being on Augmentin prior to admission and having failed to respond to outpatient treatment measures but showing improvement with more aggressive parenteral antibiotic.treatment. 3. Altered mental status on admission due to acute infarcts with longstanding history of multiple cerebrovascular accidents in the past, exacerbated by underlying pneumonia and recent acute infarct for chronic illness.with exacerbation secondary to acute renal failure with patient showing to be returning to baseline prior to discharge. 4. 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 5. Electrolyte imbalance with hyperkalemia secondary to renal failure, returning to baseline status. 6. Acute on chronic heart failure with an elevated BNP with no echocardiogram for for review at time of admission, awaiting further evaluation with echocardiogram at discharge with radiographic studies during admission consistent with finding pulmonary congestion and responding aggressive management with Swan placement, strict I&O as well as diuretic therapy. 7. History of recent falls, with most recurring over the last week prior to admission, likely due to recurrence of stroke as noted on MRI. 8. Seizure disorder on Keppra and Lamictal with levels pending at discharge with no seizure activity noted during hospitalization. 9. Hypertension, slightly elevated but controlled and felt to be compensatory response to acute stroke event and worsened by renal failure with lisinopril being held with permissive hypertension allowed to prevent further insult of acute stroke.. 10. Hyperlipidemia on statin prior to admission. REASON FOR HOSPITALIZATION: This is a 67 year-old male patient who is having increasing confusion over the last week or so. He has also had fallen almost every day this past week. He sees Dr. Piyush Acevedo and sent him to the Emergency Room today. He has also been treated for pneumonia but his was worried about that because he has been unable to take his medication due to the increased confusion. He was on Augmentin and he has continually gotten weaker and weaker and today he would not communicate with anyone and again, he has had multiple falls. In the Emergency Room his chest x- ray showed bilateral predominantly central infiltrates and consolidation in the lower lung carvalho and small effusion. Findings may reflect pulmonary edema and infectious process is not excluded. His labs were drawn and his urinalysis was basically within normal limits with the exception of 100 urine protein and a trace of lysed blood. His WBCs were normal at 7.6 and hemoglobin of 10.2 and hematocrit of 31.5. His sodium was 137, potassium 4.6, chloride 1108, carbon dioxide 23, BUN 61 and creatinine 3.81. His baseline creatinine is about 6.5. Calcium low at 7.4, serum total protein 6, albumin 3.8. In the Emergency Room he was given some Toradol and a 250 mL bag of sodium chloride. His vital signs in the Emergency Room showed a temperature of 96.5 with a heart rate of 81, blood pressure 152/88, respiratory rate 18 and 02 saturations 100% on room air. LABORATORY STUDIES: White count showed to be normal during admission with the final white count of 8,900, hemoglobin and hematocrit stable at discharge at 9.9 and 31.6, platelet count 271,000 with differential showing to be without a left shift. Coagulation studies showed PT of 11.7, PTT of 27.6. Chemistries showed electrolytes initially on admission to be normal with potassium 4.6, his potassium did go up to a maximum of 5.8 but with placement of Swan prior to discharge his electrolytes had normalized, potassium 4.4, BUN showing elevation at 4.06 with BUN of 52 after diuresis. Prior to diuresis his creatinine was returning to baseline. Elevated BNP of 3730, ammonia levels on admission of 14. Liver functions within normal limits. Troponin 0.03. Urinalysis initially showed 100 protein, trace blood with microscopic showing to be within normal limits. After placement of Swan he had 100 of protein, small amount of blood and continued to show normal microscopic findings. Lamotrigine level low at 2.8. Group A strep was negative. MICROBIOLOGY: Throat culture showed no beta hemolytic streptococcus. Blood culture showed no growth after 5 days incubation. Sputum culture was still pending at discharge. RADIOLOGY: He had multiple radiographic studies initially in the Emergency Room including at CT of the head without contrast and per radiology interpretation showed no acute intracranial abnormalities identified. Chest x- ray on admission and per radiology interpretation showed bilateral predominantly central infiltrates with consolidation in the lower lung carvalho with small effusions. Findings may reflect pulmonary edema, infectious process could not be excluded. He had repeat chest x-rays and final chest x-ray on per radiology interpretation showed unchanged cardiac silhouette and bilateral perihilar infiltrates/edema/pneumonia possible small left pleural effusion. He had a repeat CT of the head without contrast on 02/01/18 and per radiology interpretation showed no hemorrhage, no mass effect and no midline shift. Stable multicentric areas of low density in the periventricular white matter, subcortical white matter and stable encephalomyopathy, bilateral temporal lobes larger on the right than the left with basal ganglia more on the right than left internal capsule. This was followed with a brain MRI without contrast and per radiology interpretation showed acute lacunar infarcts in the right posterior limb of the internal capsule and left parietal lobe, bilateral embolic etiology, senescent changes which are advanced with patient's age. He had carotid artery ultrasound studies completed and showed no hemodynamically significant stenosis and he also had bilateral lower extremity ultrasounds that showed no evidence of deep venous thrombus bilaterally. EKG showed normal sinus rhythm and no acute changes. HOSPITAL COURSE: Mr. Oliva was admitted on 01/30/18. He was initiated on antibiotics with azithromycin and Rocephin with concerns for developing pneumonia. During hospitalization he had evidence of an acute stroke with right -sided weakness. MRI followup showed he had a possible embolic stroke. His symptoms did resolve prior to discharge. He was started on therapeutic Lovenox after consultation with Neurology with Dr. Acevedo, he was transitioned to Eliquis at time of discharge. He was showing some decrease in kidney function and low output and therefore a Swan placement was attempted, however, this was difficult and was to followup with placement which did show that he was retaining some urine which was felt to be resulting in his worsening renal function. After his Swan placement he was managed with Lasix with concerns for pulmonary edema and he did show improvement clinically but continued to show significant weakness and was not able to be discharged home safely. A consultation with [facility] rehabilitation showed he was accepted in transfer for continuation of physical therapy. PLAN: Mr. Oliva was discharged on 02/02/18 to be transferred to [facility] rehabilitation facility in [place]. Once discharged he will be followed up with Dr. Acevedo, his primary care physician. Disposition: He was transferred in stable condition via ground ambulance. #[id number] MTDD
== END 2018-02-02 15:58 | disposition short-term general hospital (02) | DRG 64 ==
LOC: ER 16:47 → MS 19:51
PROVIDERS: ADMIT Nurse Practitioner Family; ATTEND Nurse Practitioner Acute Care
DX: I63.431 Cerebral infarction due to embolism of right posterior cerebral artery (principal); J18.9 Pneumonia, unspecified organism; J69.0 Pneumonitis due to inhalation of food and vomit; N17.9 Acute kidney failure, unspecified; I13.0 Hypertensive heart and chronic kidney disease with heart failure and stage 1 through stage 4 chronic kidney disease, or unspecified chronic kidney disease; R29.6 Repeated falls; Z88.8 Allergy status to other drugs, medicaments and biological substances; Z79.82 Long term (current) use of aspirin; Z79.02 Long term (current) use of antithrombotics/antiplatelets; Z86.73 Personal history of transient ischemic attack (TIA), and cerebral infarction without residual deficits; E11.51 Type 2 diabetes mellitus with diabetic peripheral angiopathy without gangrene; E78.5 Hyperlipidemia, unspecified; G40.909 Epilepsy, unspecified, not intractable, without status epilepticus; G25.81 Restless legs syndrome; I67.2 Cerebral atherosclerosis; N18.9 Chronic kidney disease, unspecified; E11.22 Type 2 diabetes mellitus with diabetic chronic kidney disease; R33.9 Retention of urine, unspecified; I50.9 Heart failure, unspecified

== ENCOUNTER 2018-02-15 11:14 | Emergency (ER) | payer MEDICARE ==
--- NOTE | 2018-02-15 12:22 | ED.PDOC ---
History of Present Illness - General Chief Complaint: Neuro Symptoms/Deficits Stated Complaint: Confusion, diarrhea, pulled out aguilar Time Seen by Provider: 02/15/18 11:50 Source: patient Exam Limitations: clinical condition - History of Present Illness Initial Comments: PT BROUGHT IN BY FAMILY DUE TO CONFUSION AND AGITATION. PT BEGAN HAVING DIARRHEA THIS MORNING AND PULLED AGUILAR CATHETER OUT. PTS PCP INSTRUCTED FAMILY TO BRING PT TO THE ED FOR AGUILAR CATH REPLACEMENT. PT WAS DISCHARGED FROM REHAB 3 DAYS AGO AND WAS STARTED ON NAMENDA AND SEROQUEL WHILE IN REHAB. FAMILY BELIEVES THAT THE NEW MEDS ARE THE CAUSE FOR HIS CONFUSION. FAMILY STATES THEY HAVE NOT GIVEN THE MEDS FOR THE PAST 3 DAYS. Timing/Duration: getting worse Severity: moderate Improving Factors: nothing Worsening Factors: nothing Associated Symptoms: denies symptoms Allergies/Adverse Reactions: Allergies Calcitriol Allergy (Verified 02/15/18 12:26) Clonidine Allergy (Verified 02/15/18 12:26) Donepezil Allergy (Verified 02/15/18 12:26) Hydralazine [From BiDil] Allergy (Verified 02/15/18 12:26) Isosorbide Nitrate [From BiDil] Allergy (Verified 02/15/18 12:26) Levofloxacin [From Levaquin] Allergy (Verified 02/15/18 12:26) Metformin Allergy (Verified 02/15/18 12:26) Vomitting Nitroglycerin Allergy (Verified 02/15/18 12:26) Valproic Acid [From Depakote] Allergy (Verified 02/15/18 12:26) Yellow Dye [From BiDil] Allergy (Verified 02/15/18 12:26) Home Medications: Ambulatory Orders Aspirin [Aspirin EC] 81 mg PO BEDTIME 11/08/15 Atorvastatin Calcium [Lipitor] 20 mg PO BEDTIME 11/08/15 Carvedilol 6.25 mg PO BID 11/08/15 Citalopram Hydrobromide 40 mg PO BEDTIME 11/08/15 Clopidogrel Bisulfate 75 mg PO BEDTIME 11/08/15 Lamotrigine [Lamictal] 100 mg PO BID 11/08/15 Levetiracetam [Keppra] 500 mg PO BID 11/08/15 Lisinopril 20 mg PO BEDTIME 11/08/15 Melatonin 3 mg PO BEDTIME 11/08/15 Ropinirole Hydrochloride [Ropinirole ER] 1 mg PO BEDTIME 11/08/15 Furosemide 20 mg PO BID 12/10/17 Potassium Chloride Microencaps [Klor-Con M20] 20 meq PO BID 12/10/17 Review of Systems - Review of Systems Constitutional: Denies: chills, fever EENTM: Denies: ear discharge, mouth swelling Respiratory: States: cough. Denies: short of breath Cardiology: Denies: chest pain Gastrointestinal/Abdominal: States: diarrhea. Denies: nausea, vomiting Genitourinary: Denies: dysuria, frequency Musculoskeletal: Denies: joint pain, joint swelling Skin: Denies: change in color, dryness Neurological: Denies: numbness, weakness Endocrine: States: no symptoms reported Hematologic/Lymphatic: States: no symptoms reported Past Medical History (General) - Patient Medical History Hx Seizures: Yes Hx Stroke: Yes Hx Dementia: No Hx Asthma: Yes Hx of COPD: No Hx Cardiac Disorders: Yes - PVD - stent placement Hx Congestive Heart Failure: Yes Hx Pacemaker: No Hx Hypertension: Yes Hx Thyroid Disease: No Hx Diabetes: Yes Hx Gastroesophageal Reflux: No Hx Renal Disease: Yes Hx Cancer: No Hx of HIV: No Hx Hepatitis C: No Hx MRSA: No - Vaccination History Hx Tetanus, Diphtheria Vaccination: No Hx Influenza Vaccination: No Hx Pneumococcal Vaccination: No - Social History Hx Tobacco Use: Yes Hx Alcohol Use: Yes Hx Substance Use: No Hx Substance Use Treatment: No Hx Depression: No Hx Physical Abuse: No Hx Emotional Abuse: No - Female History Patient : No Family Medical History - Family History Father Family History: No Known Living Status: Unknown Hx Family Congestive Heart Failure: Yes - dad/[place] Hx Family Diabetes: Yes - mom Physical Exam - Physical Exam General Appearance: Alert, Comfortable, No apparent distress, Well Developed, Well Groomed, Well Hydrated Eye Exam: bilateral normal Ears, Nose, Throat: hearing grossly normal Neck: full range of motion Respiratory: chest non-tender, lungs clear, normal breath sounds Cardiovascular/Chest: regular rate, rhythm, no murmur Gastrointestinal/Abdominal: non tender, soft, other - ECCHYMOSIS TO THE SUPRA PUBIC REGION, MININMAL TENDRERNESS Back Exam: normal inspection, no CVA tenderness Extremity: non-tender, normal inspection, no pedal edema Neurologic: no motor/sensory deficits, alert Skin Exam: warm/dry, pallor Progress - Progress Progress: 02/15/18 13:21 PT COMPLAINS OF NAUSEA ON RE-EVAL. PT DENIES CHEST PAIN TODAY OR IN THE DAYS PRECEEDING. PT AND FAMILY INFORMED OF PLAN TO TRANSFER DUE TO ELEVATED TROP. - Results/Orders Results/Orders: Laboratory Tests 02/15/18 02/15/18 02/15/18 12:00 12:00 12:00 WBC 8.5 RBC 3.11 L Hgb 9.6 L Hct 30.0 L MCV 96.6 H MCH 30.8 MCHC 31.9 L RDW 14.8 H Plt Count 318 MPV 8.2 Absolute Neuts (auto) 7.00 H Absolute Lymphs (auto) 0.90 L Absolute Monos (auto) 0.60 Absolute Eos (auto) 0.00 Absolute Basos (auto) 0.00 Neutrophils % 82.7 H Lymphocytes % 10.2 L Monocytes % 6.7 Eosinophils % 0.0 L Basophils % 0.4 PT 12.1 H INR 1.21 H PTT (SP) 26.3 Sodium 137 Potassium 6.5 H Chloride 104 Carbon Dioxide 20 L Anion Gap 19.5 H BUN 60 H Creatinine 4.73 H BUN/Creatinine Ratio 12.7 Random Glucose 161 H Serum Osmolality 294.2 Lactic Acid Calcium 8.7 Total Bilirubin 0.8 AST 176 H ALT 122 H Alkaline Phosphatase 95 Creatine Kinase 163 CK-MB (CK-2) 16.9 H* CK-MB (CK-2) % 10.37 H Troponin I 8.76 H* Serum Total Protein 6.8 Albumin 3.3 Globulin 3.5 Albumin/Globulin Ratio 0.9 L 02/15/18 12:00 WBC RBC Hgb Hct MCV MCH MCHC RDW Plt Count MPV Absolute Neuts (auto) Absolute Lymphs (auto) Absolute Monos (auto) Absolute Eos (auto) Absolute Basos (auto) Neutrophils % Lymphocytes % Monocytes % Eosinophils % Basophils % PT INR PTT (SP) Sodium Potassium Chloride Carbon Dioxide Anion Gap BUN Creatinine BUN/Creatinine Ratio Random Glucose Serum Osmolality Lactic Acid 3.2 H* Calcium Total Bilirubin AST ALT Alkaline Phosphatase Creatine Kinase CK-MB (CK-2) CK-MB (CK-2) % Troponin I Serum Total Protein Albumin Globulin Albumin/Globulin Ratio - EKG/XRAY/CT EKG: Sinus - @74BPM, SHORT ME @106MS, NL AXIS, nonspecific ST T wave Chg - INFERIOR AND LATERAL LEADS, Unchanged from - 01/30/18 XRAY: chest - IMPROVED WHEN COMPARED TO PREVIOUS, PERSISTENT LINGULAR OPACITY, PER RAD Departure - Departure Clinical Impression: NSTEMI (non-ST elevation myocardial infarction), Acute confusional state, Acute on chronic renal failure, Hyperkalemia, Dehydration, Lactic acidosis Time of Disposition: 13:42 Disposition: Transfer to Hospital Condition: Poor Departure Forms: ED Discharge - Pt. Copy, Patient Portal Self Enrollment Referrals: KIRSTIN OCONNOR MD [Primary Care Provider] - 1-2 Weeks Home Medications: Ambulatory Orders Aspirin [Aspirin EC] 81 mg PO BEDTIME 11/08/15 Atorvastatin Calcium [Lipitor] 20 mg PO BEDTIME 11/08/15 Carvedilol 6.25 mg PO BID 11/08/15 Citalopram Hydrobromide 40 mg PO BEDTIME 11/08/15 Clopidogrel Bisulfate 75 mg PO BEDTIME 11/08/15 Lamotrigine [Lamictal] 100 mg PO BID 11/08/15 Levetiracetam [Keppra] 500 mg PO BID 11/08/15 Lisinopril 20 mg PO BEDTIME 11/08/15 Melatonin 3 mg PO BEDTIME 11/08/15 Ropinirole Hydrochloride [Ropinirole ER] 1 mg PO BEDTIME 11/08/15 Furosemide 20 mg PO BID 12/10/17 Potassium Chloride Microencaps [Klor-Con M20] 20 meq PO BID 12/10/17 Critical Care Note - Critical Care Note Total Time (mins): 45 Transfer to Outside Facility - Transfer Information Accepting Provider:: DR. DIAZ Accepting Facility: [facility] Reason for Transfer: required specialist not available - CARDIOLOGY
--- NOTE | 2018-02-15 12:30 | RAD ---
EXAM DESCRIPTION: Chest,1 View CLINICAL HISTORY: 67 years Male, PNEUMONIA, AMS COMPARISON: Previous study February 01, 2018 TECHNIQUE: AP portable chest. FINDINGS: Heart size is large with prominent central pulmonary vascularity. Small to moderate left pleural effusion is present. Patchy partial volume loss in the medial right lung base is seen with patchy infiltrate in the lingula. Plate and screws in lower C-spine. No pulmonary mass or worrisome nodule. No pneumothorax or pleural effusion. Bones are unremarkable. Since the previous study, the chest is markedly improved. IMPRESSION: Improved appearance of the chest since previous study. Electronically signed by: Sajan Lentz MD 02/15/2018 12:29 PM [facility]
[2018-02-15] MEDS: SODIUM CHLORIDE 0.9% (FLUSH) 10 ML SYG IV PRN (12:34)
[2018-02-15] MEDS: SODIUM CHLORIDE 0.9% 1000ML 1,000 ML IVS ONE (12:34)
[2018-02-15] MEDS ORDERED: INSULIN, REG.(HUMAN) 100 U/ML VIAL IV ONE (12:38)
[2018-02-15] MEDS ORDERED: SOD POLYSTYRENE SULFONATE 15 GM/60 ML BTTL PO ONE (12:38)
[2018-02-15] MEDS ORDERED: SODIUM CHLORIDE 0.9% (FLUSH) 10 ML SYG IV PRN (12:38)
[2018-02-15] MEDS ORDERED: SODIUM BICARBONATE VIAL 50 MEQ/50 ML VIAL ONE (12:46)
[2018-02-15] MEDS: SODIUM BICARBONATE SYRINGE 50 MEQ/50 ML SYG IV ONE (12:47)
[2018-02-15] MEDS: DEXTROSE 50% 25 GM/50 ML SYG IV ONE (12:59)
[2018-02-15] MEDS: CALCIUM GLUCONATE INJ 1 GM/10 ML VIAL IV ONE (13:04)
[2018-02-15] MEDS: SODIUM BICARBONATE VIAL 50 MEQ/50 ML VIAL IV ONE (13:05)
[2018-02-15] MEDS ORDERED: INSULIN, REG.(HUMAN) 100 U/ML VIAL ONE (13:09)
[2018-02-15] MEDS ORDERED: ENOXAPARIN SODIUM 60 MG/0.6 ML SYG SUBCU ONE (13:36)
[2018-02-15] MEDS: INSULIN, REG.(HUMAN) 100 U/ML VIAL IV ONE (13:38)
[2018-02-15 15:15] VITALS: BP 137/78; TEMP 98.7; O2SAT 99
== END 2018-02-15 14:30 | disposition short-term general hospital (02) ==
LOC: ER 11:14
DX: I21.4 Non-ST elevation (NSTEMI) myocardial infarction (principal); E86.0 Dehydration; E87.2 Acidosis; E87.5 Hyperkalemia; R41.0 Disorientation, unspecified; E11.22 Type 2 diabetes mellitus with diabetic chronic kidney disease; I13.0 Hypertensive heart and chronic kidney disease with heart failure and stage 1 through stage 4 chronic kidney disease, or unspecified chronic kidney disease; R19.7 Diarrhea, unspecified; I50.9 Heart failure, unspecified; N18.9 Chronic kidney disease, unspecified; J45.909 Unspecified asthma, uncomplicated; I73.9 Peripheral vascular disease, unspecified; Z87.891 Personal history of nicotine dependence; Z86.73 Personal history of transient ischemic attack (TIA), and cerebral infarction without residual deficits; Z79.82 Long term (current) use of aspirin; Z79.899 Other long term (current) drug therapy; Z88.8 Allergy status to other drugs, medicaments and biological substances
CPT/HCPCS: 36415; 71045; 80053; 81001; 82550; 82553; 83605; 84484; 85025; 85610; 85730; 87040; 87077; 87086; 93005; J1650; J7030